=== PATIENT | female | born 1960 | race Caucasian/White ===

== ENCOUNTER 2019-09-08 15:03 | Inpatient (IN) ==
[2019-09-08 17:05] LABS: Bilirubin,Urine Negative (Negative); Blood,Urine Small (Negative); Clarity,Urine Clear (Clear); Color,Urine Yellow (Yellow); Glucose,Urine (UA) >=1000 mg/dL (Normal); Ketones,Urine Trace mg/dL (Negative); Leukocyte Esterase,Urine Negative (Negative); Nitrite,Urine Negative (Negative); Protein,Urine Negative (Neg-Trace); Urobilinogen,Urine Normal (Normal)
[2019-09-08 17:08] LABS: Bacteria,Urine None Seen per hpf (None-Few); Hyaline Casts,Urine None Seen per lpf (None-Few); Squamous Epithelial Cell,Urine Many per lpf (None-Few)
[2019-09-08] MEDS: 0.9 % Sodium Chloride 1,000 ML IVC SCH ×2 (17:10→19:08)
[2019-09-08 17:22] LABS: Basophils # 0.1 K/mcL (0.0-0.2); Basophils % 0.5 %; Eosinophils % 0.3 %; Hematocrit 47.9 % (35.3-44.9); Hemoglobin 15.3 g/dL (11.5-15.4); Immature Granulocytes % 0.5 % (0-4); Lymphocytes % 8.6 %; Mean Corpuscular HGB Conc 31.9 g/dL (31.6-35.5); Mean Corpuscular Volume 100.2 fL (83.0-100.0); Mean Platelet Volume 14.6 fL (9.4-12.4); Monocytes % 8.3 %; Neutrophils # 9.7 K/mcL (1.6-8.9); Platelet Count 192 K/mcL (140-400); Red Blood Count 4.78 M/mcL (3.82-4.97); Red Cell Distribution Width 13.4 % (11.5-14.5); Segmented Neutrophils % 81.8 %; White Blood Count 11.9 K/mcL (4.3-11.1)
[2019-09-08 17:28] LABS: VBG HCO3 24 mEq/L (21-27); VBG PCO2 48 mmHg (41-51); VBG PH 7.31 pH Units (7.32-7.42); VBG PO2 49 mmHg (25-50)
[2019-09-08 17:36] LABS: Estimated Average Glucose 352 mg/dl
[2019-09-08 18:03] LABS: Alanine Aminotransferase 45 Units/L (7-52); Albumin 4.1 g/dL (3.5-5.7); Albumin/Globulin Ratio 1.1 (1.1-2.2); Alkaline Phosphatase 112 Units/L (34-104); Aspartate Amino Transferase 34 Units/L (13-39); BUN/Creatinine Ratio 18 (6-26); Bilirubin,Total 0.8 mg/dL (0.3-1.0); Blood Urea Nitrogen 36 mg/dL (8-23); Calcium 11.1 mg/dL (8.6-10.3); Carbon Dioxide 20 mEq/L (23-29); Chloride 81 mEq/L (98-107); Globulin 3.9 g/dL (2.4-3.5); Magnesium 2.4 mg/dL (1.6-2.6); Osmolality,Calculated 302 (280-300); Potassium 3.8 mEq/L (3.5-5.1); Sodium 118 mEq/L (136-145); Troponin I < 0.03 ng/mL (< 0.04); eGFR For African Americans 31 (> 60); eGFR For Non-African Americans 25 (> 60)
[2019-09-08 18:05] LABS: Glucose 949 mg/dL (70-105)
[2019-09-08] MEDS ORDERED: *HR* Dextrose 50 % in Water (Syg) 50 ML SYRINGE IVP PRN ×2 (18:14→19:57)
[2019-09-08] MEDS ORDERED: Insulin Regular, Human 100 UNIT/ML IV ONE (18:14)
[2019-09-08] MEDS ORDERED: Insulin Human Regular 100 UNIT in 0.9 % Sodium Chloride 100 ML IVC SCH ×2 (18:15→20:00)
[2019-09-08] MEDS ORDERED: 0.9 % Sodium Chloride w KCl 20 MEQ/1,000 ML MLS IVC SCH (18:30)
[2019-09-08] MEDS ORDERED: D5% in 0.45% NACL w KCl 20 MEQ/1,000 ML MLS IVC PRN (19:57)
[2019-09-08] MEDS ORDERED: Insulin Regular, Human 100 UNIT/ML IV PRN (19:57)
[2019-09-08] MEDS ORDERED: D5% in 0.45% NACL 1,000 ML IVC PRN (19:57)
[2019-09-08 21:18] LABS: BUN/Creatinine Ratio 19 (6-26); Blood Urea Nitrogen 33 mg/dL (8-23); Calcium 9.9 mg/dL (8.6-10.3); Carbon Dioxide 21 mEq/L (23-29); Chloride 92 mEq/L (98-107); Glucose 665 mg/dL (70-105); Osmolality,Calculated 301 (280-300); Sodium 126 mEq/L (136-145); eGFR For African Americans 36 (> 60); eGFR For Non-African Americans 30 (> 60)
[2019-09-08] MEDS: 0.45 % Sodium Chloride w/KCl 20 MEQ/1,000 ML MLS IVC SCH ×2 (21:21→23:17)
[2019-09-08] MEDS ORDERED: Ondansetron 4 MG/2 ML VIAL IVP PRN (21:21)
[2019-09-08] MEDS: Insulin Human Regular 100 UNIT in 0.9 % Sodium Chloride 100 ML IVC SCH (21:22)
[2019-09-08 22:18] LABS: Troponin I < 0.03 ng/mL (< 0.04)
[2019-09-08 22:57] LABS: Calcium 9.8 mg/dL (8.6-10.3); Potassium 3.2 mEq/L (3.5-5.1)
[2019-09-09 00:40] LABS: Calcium 9.8 mg/dL (8.6-10.3); Potassium 3.6 mEq/L (3.5-5.1)
[2019-09-09] MEDS: 0.45 % Sodium Chloride w/KCl 20 MEQ/1,000 ML MLS IVC SCH ×4 (02:12→06:25)
[2019-09-09 02:53] LABS: Calcium 9.6 mg/dL (8.6-10.3); Potassium 3.2 mEq/L (3.5-5.1)
[2019-09-09 05:35] LABS: Calcium 9.8 mg/dL (8.6-10.3); Potassium 3.2 mEq/L (3.5-5.1)
[2019-09-09] MEDS ORDERED: *HR* Heparin 5,000 UNIT/ML VIAL SQ SCH (06:00)
[2019-09-09] MEDS ORDERED: Insulin DETEMIR 100 UNIT/ML X5UNITS SQ ONE ×3 (06:17→21:00)
[2019-09-09] MEDS: Insulin Human Regular 100 UNIT in 0.9 % Sodium Chloride 100 ML IVC SCH (06:19)
[2019-09-09 06:30] LABS: Basophils # 0.1 K/mcL (0.0-0.2); Basophils % 0.3 %; Eosinophils # 0.1 K/mcL (0.0-0.6); Eosinophils % 0.7 %; Hematocrit 42.5 % (35.3-44.9); Hemoglobin 14.8 g/dL (11.5-15.4); Immature Granulocytes % 0.7 % (0-4); Lymphocytes # 1.6 K/mcL (0.6-4.6); Lymphocytes % 9.7 %; Mean Corpuscular HGB Conc 34.8 g/dL (31.6-35.5); Mean Corpuscular Hemoglobin 32.5 pg (28.0-33.3); Mean Corpuscular Volume 93.4 fL (83.0-100.0); Monocytes % 5.9 %; Neutrophils # 13.8 K/mcL (1.6-8.9); Platelet Count 200 K/mcL (140-400); Red Blood Count 4.55 M/mcL (3.82-4.97); Red Cell Distribution Width 13.3 % (11.5-14.5); Segmented Neutrophils % 82.7 %; White Blood Count 16.7 K/mcL (4.3-11.1)
[2019-09-09 06:50] LABS: Calcium 9.8 mg/dL (8.6-10.3)
[2019-09-09] MEDS ORDERED: 0.9 % Sodium Chloride w KCl 20 MEQ/1,000 ML MLS IVC SCH ×2 (09:00→14:02)
[2019-09-09] MEDS ORDERED: Perflutren Lipid Microsphere 1.3 ML in 0.9 % Sodium Chloride 8.7 ML IVP ONE ×2 (09:48→14:02)
[2019-09-09] MEDS: Insulin LISPRO 300 UNITS/3 ML VIAL SQ SCH ×4 (10:41→16:59)
[2019-09-09] MEDS ORDERED: Dextrose Gel 15 GM/37.5 ML TUBE PO PRN ×4 (11:35→14:02)
[2019-09-09] MEDS ORDERED: D5% in Water 1,000 ML IVC PRN (11:35)
[2019-09-09] MEDS ORDERED: *HR* Dextrose 50 % in Water (Syg) 50 ML SYRINGE IVP PRN ×2 (11:35→14:02)
[2019-09-09] MEDS ORDERED: Ondansetron 4 MG/2 ML VIAL IVP PRN (14:02)
[2019-09-09] MEDS ORDERED: Insulin LISPRO 300 UNITS/3 ML VIAL SQ SCH ×3 (17:00→21:00)
[2019-09-09 17:14] LABS: Acinetobacter baumannii by PCR Not Detected (Not Detect); Candida albicans by PCR Not Detected (Not Detect); Candida glabrata by PCR Not Detected (Not Detect); Candida krusei by PCR Not Detected (Not Detect); Candida parapsilosis by PCR Not Detected (Not Detect); Candida tropicalis by PCR Not Detected (Not Detect); Enterobacter cloacae Cmplx PCR Not Detected (Not Detect); Enterobacteriaceae by PCR Not Detected (Not Detect); Enterococcus by PCR Not Detected (Not Detect); Escherichia coli by PCR Not Detected (Not Detect); Klebsiella oxytoca by PCR Not Detected (Not Detect); Klebsiella pneumoniae by PCR Not Detected (Not Detect); Proteus by PCR Not Detected (Not Detect); Pseudomonas aeruginosa by PCR Not Detected (Not Detect); Serratia marcescens by PCR Not Detected (Not Detect); Staphylococcus aureus by PCR DETECTED (Not Detect); Streptococcus agalactiae(B)PCR Not Detected (Not Detect); Streptococcus by PCR Not Detected (Not Detect); Streptococcus pneumoniae PCR Not Detected (Not Detect); Streptococcus pyogenes (A) PCR Not Detected (Not Detect); blaKPC Carbapenem-Resist Gene Not Detected (Not Detect); mecA Methicillin-Resist Gene Not Detected (Not Detect); vanA/B Vancomycin-Resist Genes Not Detected (Not Detect)
[2019-09-09] MEDS: *HR* Heparin 5,000 UNIT/ML VIAL SQ SCH (17:27)
[2019-09-09] MEDS ORDERED: Vancomycin 1,750 MG in 0.9 % Sodium Chloride 250 ML IVPB SCH (18:00)
[2019-09-09 18:05] LABS: Alanine Aminotransferase 32 Units/L (7-52); Albumin 3.4 g/dL (3.5-5.7); Alkaline Phosphatase 91 Units/L (34-104); Aspartate Amino Transferase 27 Units/L (13-39); BUN/Creatinine Ratio 19 (6-26); Bilirubin,Total 0.6 mg/dL (0.3-1.0); Blood Urea Nitrogen 22 mg/dL (8-23); Calcium 9.3 mg/dL (8.6-10.3); Carbon Dioxide 19 mEq/L (23-29); Chloride 101 mEq/L (98-107); Globulin 3.5 g/dL (2.4-3.5); Glucose 291 mg/dL (70-105); Magnesium 1.9 mg/dL (1.6-2.6); Osmolality,Calculated 278 (280-300); Phosphorous < 1.0 mg/dL (2.7-4.5); Potassium 3.4 mEq/L (3.5-5.1); Sodium 127 mEq/L (136-145); Total Protein 6.9 g/dL (6.4-8.9); eGFR For African Americans 59 (> 60); eGFR For Non-African Americans 48 (> 60)
[2019-09-09] MEDS ORDERED: Potassium Phosphate 44 MEQ in 0.9 % Sodium Chloride 250 ML IVPB ONE (18:09)
[2019-09-09 22:16] LABS: Alanine Aminotransferase 29 Units/L (7-52); Albumin 3.2 g/dL (3.5-5.7); Albumin/Globulin Ratio 0.9 (1.1-2.2); Alkaline Phosphatase 94 Units/L (34-104); Aspartate Amino Transferase 29 Units/L (13-39); BUN/Creatinine Ratio 20 (6-26); Bilirubin,Total 0.6 mg/dL (0.3-1.0); Blood Urea Nitrogen 21 mg/dL (8-23); Carbon Dioxide 18 mEq/L (23-29); Chloride 103 mEq/L (98-107); Globulin 3.4 g/dL (2.4-3.5); Glucose 188 mg/dL (70-105); Magnesium 1.8 mg/dL (1.6-2.6); Osmolality,Calculated 274 (280-300); Phosphorous 1.3 mg/dL (2.7-4.5); Potassium 3.8 mEq/L (3.5-5.1); Sodium 128 mEq/L (136-145); Total Protein 6.6 g/dL (6.4-8.9); eGFR For African Americans > 60 (> 60); eGFR For Non-African Americans 53 (> 60)
[2019-09-10 03:34] LABS: Basophils % 0.3 %; Eosinophils # 0.1 K/mcL (0.0-0.6); Eosinophils % 0.5 %; Hematocrit 39.6 % (35.3-44.9); Hemoglobin 13.6 g/dL (11.5-15.4); Immature Granulocytes % 0.4 % (0-4); Lymphocytes # 1.3 K/mcL (0.6-4.6); Lymphocytes % 8.8 %; Mean Corpuscular HGB Conc 34.3 g/dL (31.6-35.5); Mean Corpuscular Volume 93.2 fL (83.0-100.0); Mean Platelet Volume 14.5 fL (9.4-12.4); Monocytes # 1.5 K/mcL (0.0-1.3); Monocytes % 10.6 %; Neutrophils # 11.4 K/mcL (1.6-8.9); Platelet Count 142 K/mcL (140-400); Red Blood Count 4.25 M/mcL (3.82-4.97); Red Cell Distribution Width 13.4 % (11.5-14.5); Segmented Neutrophils % 79.4 %; White Blood Count 14.3 K/mcL (4.3-11.1)
[2019-09-10 04:10] LABS: Magnesium 1.9 mg/dL (1.6-2.6); Phosphorous 2.6 mg/dL (2.7-4.5)
[2019-09-10 04:24] LABS: Alanine Aminotransferase 26 Units/L (7-52); Albumin 2.9 g/dL (3.5-5.7); Albumin/Globulin Ratio 0.9 (1.1-2.2); Alkaline Phosphatase 79 Units/L (34-104); Aspartate Amino Transferase 25 Units/L (13-39); BUN/Creatinine Ratio 19 (6-26); Bilirubin,Total 0.6 mg/dL (0.3-1.0); Blood Urea Nitrogen 18 mg/dL (8-23); Calcium 8.5 mg/dL (8.6-10.3); Carbon Dioxide 17 mEq/L (23-29); Chloride 104 mEq/L (98-107); Globulin 3.2 g/dL (2.4-3.5); Glucose 193 mg/dL (70-105); Osmolality,Calculated 275 (280-300); Potassium 3.8 mEq/L (3.5-5.1); Sodium 129 mEq/L (136-145); Total Protein 6.1 g/dL (6.4-8.9); eGFR For African Americans > 60 (> 60); eGFR For Non-African Americans > 60 (> 60)
[2019-09-10] MEDS: *HR* Heparin 5,000 UNIT/ML VIAL SQ SCH ×2 (06:40→17:04)
[2019-09-10] MEDS ORDERED: Insulin LISPRO 300 UNITS/3 ML VIAL SQ SCH ×2 (07:30→21:00)
[2019-09-10] MEDS ORDERED: Insulin DETEMIR 100 UNIT/ML X5UNITS SQ SCH ×2 (09:00)
[2019-09-10] MEDS: Insulin LISPRO 300 UNITS/3 ML VIAL SQ SCH ×3 (09:05→17:05)
[2019-09-10] MEDS: Insulin DETEMIR 100 UNIT/ML X5UNITS SQ SCH ×2 (09:24→20:06)
[2019-09-10 11:15] LABS: Chol/HDL Ratio 3.3 (0-4.9)
[2019-09-11] MEDS: Acetaminophen 325 MG TABLET PO PRN ×4 (00:05→19:08)
[2019-09-11 05:09] LABS: Eosinophils % 1.6 %; Hemoglobin 12.4 g/dL (11.5-15.4); Immature Granulocytes % 0.3 % (0-4)
[2019-09-11 05:11] LABS: Basophils % 0.5 %; Eosinophils # 0.1 K/mcL (0.0-0.6); Hematocrit 36.6 % (35.3-44.9); Immature Platelets 27.4 % (1.1-6.1); Lymphocytes # 1.4 K/mcL (0.6-4.6); Lymphocytes % 15.9 %; Mean Corpuscular HGB Conc 33.9 g/dL (31.6-35.5); Mean Corpuscular Hemoglobin 32.6 pg (28.0-33.3); Mean Corpuscular Volume 96.3 fL (83.0-100.0); Monocytes # 0.9 K/mcL (0.0-1.3); Monocytes % 10.1 %; Neutrophils # 6.3 K/mcL (1.6-8.9); Platelet Count 106 K/mcL (140-400); Red Cell Distribution Width 13.6 % (11.5-14.5); Segmented Neutrophils % 71.6 %; White Blood Count 8.8 K/mcL (4.3-11.1)
[2019-09-11 05:30] LABS: BUN/Creatinine Ratio 15 (6-26); Blood Urea Nitrogen 13 mg/dL (8-23); Calcium 8.4 mg/dL (8.6-10.3); Carbon Dioxide 22 mEq/L (23-29); Chloride 108 mEq/L (98-107); Glucose 110 mg/dL (70-105); Magnesium 1.9 mg/dL (1.6-2.6); Osmolality,Calculated 279 (280-300); Phosphorous 1.9 mg/dL (2.7-4.5); Potassium 3.4 mEq/L (3.5-5.1); Sodium 134 mEq/L (136-145); eGFR For African Americans > 60 (> 60); eGFR For Non-African Americans > 60 (> 60)
[2019-09-11] MEDS: *HR* Heparin 5,000 UNIT/ML VIAL SQ SCH ×2 (06:00→17:06)
[2019-09-11] MEDS ORDERED: Potassium Phosphate 44 MEQ in 0.9 % Sodium Chloride 250 ML IVPB ONE (07:51)
[2019-09-11] MEDS ORDERED: D5% in Water 1,000 ML IVC PRN (08:08)
[2019-09-11] MEDS: Insulin LISPRO 300 UNITS/3 ML VIAL SQ SCH ×3 (08:22→17:06)
[2019-09-11] MEDS: Insulin DETEMIR 100 UNIT/ML X5UNITS SQ SCH ×2 (08:23→21:47)
[2019-09-12] MEDS: *HR* Heparin 5,000 UNIT/ML VIAL SQ SCH ×2 (05:01→17:51)
[2019-09-12 06:09] LABS: Basophils # 0.1 K/mcL (0.0-0.2); Basophils % 0.7 %; Eosinophils # 0.2 K/mcL (0.0-0.6); Eosinophils % 2.7 %; Hematocrit 36.8 % (35.3-44.9); Hemoglobin 12.5 g/dL (11.5-15.4); Immature Granulocytes % 0.3 % (0-4); Lymphocytes # 1.6 K/mcL (0.6-4.6); Lymphocytes % 18.6 %; Mean Corpuscular Hemoglobin 32.3 pg (28.0-33.3); Mean Corpuscular Volume 95.1 fL (83.0-100.0); Mean Platelet Volume 14.8 fL (9.4-12.4); Monocytes # 0.8 K/mcL (0.0-1.3); Monocytes % 9.1 %; Platelet Count 127 K/mcL (140-400); Red Blood Count 3.87 M/mcL (3.82-4.97); Red Cell Distribution Width 13.9 % (11.5-14.5); Segmented Neutrophils % 68.6 %; White Blood Count 8.8 K/mcL (4.3-11.1)
[2019-09-12 06:30] LABS: BUN/Creatinine Ratio 13 (6-26); Blood Urea Nitrogen 11 mg/dL (8-23); Calcium 8.4 mg/dL (8.6-10.3); Carbon Dioxide 23 mEq/L (23-29); Chloride 107 mEq/L (98-107); Glucose 95 mg/dL (70-105); Magnesium 1.8 mg/dL (1.6-2.6); Osmolality,Calculated 285 (280-300); Phosphorous 2.3 mg/dL (2.7-4.5); Potassium 3.4 mEq/L (3.5-5.1); Sodium 138 mEq/L (136-145); eGFR For African Americans > 60 (> 60); eGFR For Non-African Americans > 60 (> 60)
[2019-09-12] MEDS: Insulin LISPRO 300 UNITS/3 ML VIAL SQ SCH ×3 (07:24→16:38)
[2019-09-12] MEDS: Insulin DETEMIR 100 UNIT/ML X5UNITS SQ SCH ×2 (08:14→20:49)
[2019-09-12] MEDS: Acetaminophen 325 MG TABLET PO PRN ×3 (08:20→17:54)
[2019-09-12] MEDS ORDERED: Potassium Phosphate 44 MEQ in 0.9 % Sodium Chloride 250 ML IVPB ONE (08:49)
[2019-09-13 05:47] LABS: BUN/Creatinine Ratio 13 (6-26); Blood Urea Nitrogen 11 mg/dL (8-23); Calcium 8.3 mg/dL (8.6-10.3); Carbon Dioxide 20 mEq/L (23-29); Chloride 106 mEq/L (98-107); Glucose 167 mg/dL (70-105); Magnesium 1.7 mg/dL (1.6-2.6); Osmolality,Calculated 279 (280-300); Potassium 3.6 mEq/L (3.5-5.1); Sodium 133 mEq/L (136-145); eGFR For African Americans > 60 (> 60); eGFR For Non-African Americans > 60 (> 60)
[2019-09-13] MEDS: *HR* Heparin 5,000 UNIT/ML VIAL SQ SCH ×2 (05:47→16:52)
[2019-09-13] MEDS: Insulin DETEMIR 100 UNIT/ML X5UNITS SQ SCH (08:17)
[2019-09-13] MEDS: Insulin LISPRO 300 UNITS/3 ML VIAL SQ SCH ×3 (08:17→16:58)
[2019-09-13] MEDS: Acetaminophen 325 MG TABLET PO PRN ×2 (10:02→18:18)
[2019-09-13 10:36] LABS: Adenovirus F 40/41 PCR Not detected (Not detect); Astrovirus PCR Not detected (Not detect); C.difficile Toxin A/B Gene PCR Not detected (Not detect); Campylobacter by PCR Not detected (Not detect); Cryptosporidium by PCR Not detected (Not detect); Cyclospora cayetanensis PCR Not detected (Not detect); E. coli O157 by PCR Not detected (Not detect); Entamoeba histolytica PCR Not detected (Not detect); Enteroaggregative E.coli(EAEC) Not detected (Not detect); Enteropathogenic E.coli(EPEC) Not detected (Not detect); Enterotoxigenic E.coli (ETEC) Not detected (Not detect); Giardia lamblia PCR Not detected (Not detect); Norovirus GI/GII PCR Not detected (Not detect); Plesiomonas shigelloides PCR Not detected (Not detect); Rotavirus A PCR Not detected (Not detect); Salmonella PCR Not detected (Not detect); Sapovirus PCR Not detected (Not detect); Shig/EnteroinvasiveE coli EIEC Not detected (Not detect); Shigalike tox-prod E coli STEC Not detected (Not detect); Vibrio PCR Not detected (Not detect); Vibrio cholerae PCR Not detected (Not detect); Yersinia enterocolitica PCR Not detected (Not detect)
[2019-09-14] MEDS: Insulin DETEMIR 100 UNIT/ML X5UNITS SQ SCH ×3 (01:13→20:48)
[2019-09-14] MEDS: Acetaminophen 325 MG TABLET PO PRN ×3 (01:18→20:48)
[2019-09-14 06:14] LABS: BUN/Creatinine Ratio 10 (6-26); Blood Urea Nitrogen 9 mg/dL (8-23); Calcium 8.3 mg/dL (8.6-10.3); Carbon Dioxide 18 mEq/L (23-29); Chloride 107 mEq/L (98-107); Glucose 178 mg/dL (70-105); Magnesium 1.6 mg/dL (1.6-2.6); Osmolality,Calculated 281 (280-300); Phosphorous 2.3 mg/dL (2.7-4.5); Potassium 3.7 mEq/L (3.5-5.1); Sodium 134 mEq/L (136-145); eGFR For African Americans > 60 (> 60); eGFR For Non-African Americans > 60 (> 60)
[2019-09-14] MEDS: *HR* Heparin 5,000 UNIT/ML VIAL SQ SCH ×2 (06:22→17:06)
[2019-09-14] MEDS: Insulin LISPRO 300 UNITS/3 ML VIAL SQ SCH ×3 (08:59→17:06)
[2019-09-14] MEDS ORDERED: traMADol 50 MG TABLET PO ONE (22:05)
[2019-09-15] MEDS: *HR* Heparin 5,000 UNIT/ML VIAL SQ SCH (06:43)
[2019-09-15] MEDS ORDERED: Lidocaine Viscous Oral Soln 15 ML SOLUTION MM PRN (07:39)
[2019-09-15] MEDS ORDERED: 0.9 % Sodium Chloride 500 ML IVC ONE (07:40)
[2019-09-15] MEDS: *HR* FentaNYL (PF) 100 MCG/2 ML VIAL IVP PRN ×4 (08:20→08:50)
[2019-09-15] MEDS: *HR* Midazolam HCl 5 MG/5 ML VIAL IVP PRN ×6 (08:20→08:50)
[2019-09-15 09:59] LABS: BUN/Creatinine Ratio 12 (6-26); Blood Urea Nitrogen 10 mg/dL (8-23); Calcium 8.3 mg/dL (8.6-10.3); Carbon Dioxide 24 mEq/L (23-29); Chloride 107 mEq/L (98-107); Glucose 146 mg/dL (70-105); Osmolality,Calculated 288 (280-300); Potassium 3.7 mEq/L (3.5-5.1); Sodium 138 mEq/L (136-145); eGFR For African Americans > 60 (> 60); eGFR For Non-African Americans > 60 (> 60)
[2019-09-15] MEDS: Insulin LISPRO 300 UNITS/3 ML VIAL SQ SCH ×3 (10:29→17:12)
[2019-09-15] MEDS ORDERED: Lidocaine -MPF 1% 5 ML AMPUL INFILT ONE (11:04)
[2019-09-15] MEDS ORDERED: Isovue-370 500 ML BOTTLE IVP ONE (11:31)
[2019-09-15] MEDS: Insulin DETEMIR 100 UNIT/ML X5UNITS SQ SCH ×2 (11:58→20:59)
[2019-09-15] MEDS: Acetaminophen 325 MG TABLET PO PRN (19:42)
[2019-09-16] MEDS: *HR* Heparin 5,000 UNIT/ML VIAL SQ SCH ×2 (06:49→16:06)
[2019-09-16] MEDS: Insulin LISPRO 300 UNITS/3 ML VIAL SQ SCH ×3 (07:13→16:02)
[2019-09-16] MEDS ORDERED: Aspirin Enteric Coated 81 MG Tablet PO SCH (09:00)
[2019-09-16] MEDS: Insulin DETEMIR 100 UNIT/ML X5UNITS SQ SCH ×2 (09:31→21:06)
[2019-09-16] MEDS: Acetaminophen 325 MG TABLET PO PRN ×2 (14:30→19:56)
[2019-09-16 20:52] VITALS: BP 138/82
[2019-09-16] MEDS ORDERED: Aminoglycoside Consult 1 EACH MC ONE (22:57)
== END 2019-09-16 22:58 | disposition home health service (06) | DRG 871 ==
LOC: EMEROOARM 15:03 → ICNU 15:03 → 2ANU 09-10 12:44 → SUATTDRO 09-11 09:59
PROVIDERS: ADMIT Internal Medicine; ATTEND Internal Medicine

== ENCOUNTER 2021-01-05 10:18 | Observation (INO) ==
[2021-01-05 11:06] LABS: Red Cell Distribution Width 21.8 % (11.5-14.5)
[2021-01-05 11:08] LABS: Basophils # 0.1 K/mcL (0.0-0.2); Basophils % 0.7 %; Eosinophils # 0.4 K/mcL (0.0-0.6); Eosinophils % 4.6 %; Hematocrit 33.8 % (35.3-44.9); Immature Granulocytes % 1.4 % (0-4); Immature Platelets 22.3 % (1.1-6.1); Lymphocytes # 0.9 K/mcL (0.6-4.6); Mean Corpuscular HGB Conc 32.5 g/dL (31.6-35.5); Mean Corpuscular Hemoglobin 31.3 pg (28.0-33.3); Monocytes # 0.7 K/mcL (0.0-1.3); Monocytes % 8.4 %; Neutrophils # 6.1 K/mcL (1.6-8.9); Platelet Count 177 K/mcL (140-400); Red Blood Count 3.52 M/mcL (3.82-4.97); Segmented Neutrophils % 73.9 %; White Blood Count 8.3 K/mcL (4.3-11.1)
[2021-01-05 11:10] LABS: INR 1.4; Prothrombin Time 15.7 Seconds (9.4-12.1)
[2021-01-05 11:22] LABS: Alanine Aminotransferase 91 Units/L (7-52); Albumin 3.2 g/dL (3.5-5.7); Albumin/Globulin Ratio 0.9 (1.1-2.2); Alkaline Phosphatase 484 Units/L (34-104); Aspartate Amino Transferase 105 Units/L (13-39); BUN/Creatinine Ratio 8 (6-26); Bilirubin,Direct 8.5 mg/dL (0.0-0.2); Bilirubin,Indirect 5.9 mg/dL (0.0-1.0); Bilirubin,Total 14.4 mg/dL (0.3-1.0); Blood Urea Nitrogen 9 mg/dL (8-23); Calcium 8.3 mg/dL (8.6-10.3); Carbon Dioxide 20 mEq/L (23-29); Chloride 104 mEq/L (98-107); Globulin 3.4 g/dL (2.4-3.5); Glucose 223 mg/dL (70-105); Lipase 17 Units/L (11-82); Osmolality,Calculated 282 (280-300); Potassium 2.9 mEq/L (3.5-5.1); Sodium 133 mEq/L (136-145); Total Protein 6.6 g/dL (6.4-8.9); eGFR For African Americans > 60 (> 60); eGFR For Non-African Americans 51 (> 60)
[2021-01-05 11:43] LABS: Stomatocytes 1+ (Not Present); Target Cells 1+ (Not Present)
[2021-01-05 11:44] LABS: Platelet Estimate Normal (Normal)
[2021-01-05] MEDS ORDERED: Naloxone 0.4 MG/ML INJ IVP PRN (15:50)
[2021-01-05] MEDS ORDERED: Ondansetron 4 MG/2 ML VIAL IVP PRN (15:50)
[2021-01-05] MEDS ORDERED: Gadolinium Contrast Agent (WT Based) IV PRN (15:54)
[2021-01-05] MEDS ORDERED: Dextrose Gel 15 GM/37.5 ML TUBE PO PRN ×2 (15:56)
[2021-01-05] MEDS ORDERED: D5% in Water 1,000 ML IVC PRN (15:56)
[2021-01-05] MEDS ORDERED: *HR* Dextrose 50 % in Water (Vial) 50 ML VIAL IVP PRN (15:56)
[2021-01-05 17:28] LABS: Acetaminophen < 10 mcg/mL (10-20); Salicylate < 2.5 mg/dL (15.0-30.0)
[2021-01-05] MEDS: Insulin LISPRO 300 UNITS/3 ML VIAL SUBQ SCH (18:13)
[2021-01-05] MEDS: carvediloL 6.25 MG TABLET PO SCH (20:19)
[2021-01-05] MEDS: Insulin DETEMIR 100 UNIT/ML X5UNITS SUBQ SCH (20:19)
[2021-01-06 04:56] LABS: Mean Corpuscular Hemoglobin 31.6 pg (28.0-33.3)
[2021-01-06 04:58] LABS: Basophils # 0.1 K/mcL (0.0-0.2); Eosinophils # 0.4 K/mcL (0.0-0.6); Eosinophils % 5.8 %; Hematocrit 31.8 % (35.3-44.9); Hemoglobin 10.3 g/dL (11.5-15.4); Lymphocytes # 1.1 K/mcL (0.6-4.6); Lymphocytes % 16.1 %; Mean Corpuscular HGB Conc 32.4 g/dL (31.6-35.5); Mean Corpuscular Volume 97.5 fL (83.0-100.0); Monocytes # 0.7 K/mcL (0.0-1.3); Monocytes % 9.7 %; Platelet Count 165 K/mcL (140-400); Red Blood Count 3.26 M/mcL (3.82-4.97); Red Cell Distribution Width 21.7 % (11.5-14.5); Segmented Neutrophils % 65.4 %; White Blood Count 7.1 K/mcL (4.3-11.1)
[2021-01-06 04:59] LABS: Neutrophils # 4.6 K/mcL (1.6-8.9)
[2021-01-06 05:00] LABS: INR 1.4; Prothrombin Time 16.3 Seconds (9.4-12.1)
[2021-01-06 05:02] LABS: Activated Partial Thrombo Time 28.5 Seconds (26.0-36.0)
[2021-01-06 05:17] LABS: Alanine Aminotransferase 79 Units/L (7-52); Albumin 2.9 g/dL (3.5-5.7); Albumin/Globulin Ratio 0.9 (1.1-2.2); Alkaline Phosphatase 426 Units/L (34-104); Aspartate Amino Transferase 88 Units/L (13-39); BUN/Creatinine Ratio 10 (6-26); Bilirubin,Total 14.5 mg/dL (0.3-1.0); Blood Urea Nitrogen 10 mg/dL (8-23); Calcium 8.3 mg/dL (8.6-10.3); Carbon Dioxide 20 mEq/L (23-29); Chloride 106 mEq/L (98-107); Gamma Glutamyl Transpeptidase 754 Units/L (7-64); Globulin 3.1 g/dL (2.4-3.5); Glucose 118 mg/dL (70-105); Magnesium 0.7 mg/dL (1.6-2.6); Osmolality,Calculated 280 (280-300); Phosphorous 2.4 mg/dL (2.7-4.5); Potassium 3.3 mEq/L (3.5-5.1); Sodium 135 mEq/L (136-145); eGFR For African Americans > 60 (> 60); eGFR For Non-African Americans 55 (> 60)
[2021-01-06 05:55] LABS: Hepatitis B Surface Antigen Nonreactive (Nonreactive)
[2021-01-06 06:24] LABS: Hepatitis B Core IgM Nonreactive (Nonreactive)
[2021-01-06 06:25] LABS: Hepatitis A Antibody IgM Nonreactive (Nonreactive); Hepatitis C Virus Antibody Nonreactive (Nonreactive)
[2021-01-06] MEDS: Insulin LISPRO 300 UNITS/3 ML VIAL SUBQ SCH ×3 (09:44→17:39)
[2021-01-06] MEDS: FLUoxetine 20 MG CAPSULE PO SCH (09:55)
[2021-01-06] MEDS: carvediloL 6.25 MG TABLET PO SCH ×2 (09:55→20:42)
[2021-01-06] MEDS: Insulin DETEMIR 100 UNIT/ML X5UNITS SUBQ SCH ×2 (09:55→20:42)
[2021-01-06] MEDS ORDERED: Potassium Phosphate 44 MEQ in 0.9 % Sodium Chloride 250 ML IVPB ONE (11:10)
[2021-01-06] MEDS ORDERED: *HR* Propofol 200 MG/20 ML VIAL IVP ONE (13:22)
[2021-01-06] MEDS ORDERED: Ondansetron 4 MG/2 ML VIAL ONE (13:23)
[2021-01-06] MEDS ORDERED: Lidocaine -MPF 2% 2 ML VIAL ONE (13:23)
[2021-01-06] MEDS ORDERED: *HR* Succinylcholine 200 MG/10 ML VIAL IVP ONE (13:25)
[2021-01-06] MEDS ORDERED: *HR* FentaNYL (PF) 100 MCG/2 ML VIAL ONE ×3 (13:25→16:02)
[2021-01-06] MEDS ORDERED: Lidocaine -MPF 4% 5 ML AMPUL ONE (13:26)
[2021-01-06] MEDS ORDERED: *HR* Midazolam HCl 2 MG/2 ML VIAL ONE (13:39)
[2021-01-06] MEDS ORDERED: Magnesium Sulfate 1 GM/102 ML PIGGYBACK IVPB ONE (13:40)
[2021-01-06] MEDS ORDERED: *HR* Metoprolol 5 MG/5 ML VIAL IVP ONE (14:12)
[2021-01-06] MEDS ORDERED: *HR* OxyCODONE Immed Rel 5 MG TABLET PO ONE (16:40)
[2021-01-07 02:29] LABS: Hemoglobin 9.8 g/dL (11.5-15.4); Mean Corpuscular Volume 97.7 fL (83.0-100.0)
[2021-01-07 02:31] LABS: Basophils % 0.4 %; Hematocrit 29.7 % (35.3-44.9); Immature Granulocytes % 1.7 % (0-4); Immature Platelets 21.1 % (1.1-6.1); Lymphocytes # 0.9 K/mcL (0.6-4.6); Lymphocytes % 10.4 %; Mean Corpuscular Hemoglobin 32.2 pg (28.0-33.3); Mean Platelet Volume 14.5 fL (9.4-12.4); Monocytes # 0.5 K/mcL (0.0-1.3); Monocytes % 6.3 %; Neutrophils # 6.7 K/mcL (1.6-8.9); Platelet Count 180 K/mcL (140-400); Red Blood Count 3.04 M/mcL (3.82-4.97); Red Cell Distribution Width 21.7 % (11.5-14.5); Segmented Neutrophils % 81.2 %; White Blood Count 8.3 K/mcL (4.3-11.1)
[2021-01-07 02:46] LABS: Alanine Aminotransferase 67 Units/L (7-52); Albumin 2.9 g/dL (3.5-5.7); Albumin/Globulin Ratio 0.9 (1.1-2.2); Alkaline Phosphatase 414 Units/L (34-104); Aspartate Amino Transferase 60 Units/L (13-39); BUN/Creatinine Ratio 16 (6-26); Bilirubin,Total 9.8 mg/dL (0.3-1.0); Blood Urea Nitrogen 15 mg/dL (8-23); Calcium 7.9 mg/dL (8.6-10.3); Carbon Dioxide 19 mEq/L (23-29); Chloride 103 mEq/L (98-107); Globulin 3.3 g/dL (2.4-3.5); Glucose 160 mg/dL (70-105); Magnesium 1.1 mg/dL (1.6-2.6); Osmolality,Calculated 280 (280-300); Potassium 4.1 mEq/L (3.5-5.1); Sodium 133 mEq/L (136-145); Total Protein 6.2 g/dL (6.4-8.9); eGFR For African Americans > 60 (> 60); eGFR For Non-African Americans > 60 (> 60)
[2021-01-07] MEDS ORDERED: Magnesium Sulfate 1 GM/102 ML PIGGYBACK IVPB ONE (07:59)
[2021-01-07] MEDS: Insulin LISPRO 300 UNITS/3 ML VIAL SUBQ SCH ×2 (09:44→12:26)
[2021-01-07] MEDS: FLUoxetine 20 MG CAPSULE PO SCH (09:46)
[2021-01-07] MEDS: carvediloL 6.25 MG TABLET PO SCH (09:46)
[2021-01-07] MEDS: Insulin DETEMIR 100 UNIT/ML X5UNITS SUBQ SCH (09:52)
[2021-01-07 11:20] VITALS: BP 127/78
== END 2021-01-07 14:47 | disposition home or self-care (01) ==
LOC: 3ANU 10:18 → EMEROOARM 10:18 → SUATTDRO 16:00 → 3ANU 16:40
PROVIDERS: ADMIT Internal Medicine; ATTEND Internal Medicine
PROC: ENDOEUS (2021-01-06 11:00)

== ENCOUNTER 2021-01-24 16:44 | Inpatient (IN) ==
[2021-01-24] MEDS ORDERED: Ondansetron 4 MG/2 ML VIAL IVP ONE (17:03)
[2021-01-24] MEDS ORDERED: 0.9 % Sodium Chloride 1,000 ML IVC ONE ×2 (17:03→19:17)
[2021-01-24] MEDS ORDERED: *HR* FentaNYL (PF) 100 MCG/2 ML VIAL IVP ONE (17:04)
[2021-01-24] MEDS ORDERED: Isovue-370 500 ML BOTTLE IVP ONE (17:05)
[2021-01-24 17:31] LABS: Basophils # 0.1 K/mcL (0.0-0.2); Basophils % 0.4 %; Eosinophils # 0.2 K/mcL (0.0-0.6); Hematocrit 35.7 % (35.3-44.9); Hemoglobin 11.5 g/dL (11.5-15.4); Immature Granulocytes % 0.7 % (0-4); Lymphocytes # 1.4 K/mcL (0.6-4.6); Lymphocytes % 9.6 %; Mean Corpuscular HGB Conc 32.2 g/dL (31.6-35.5); Mean Corpuscular Hemoglobin 32.9 pg (28.0-33.3); Mean Platelet Volume 12.8 fL (9.4-12.4); Monocytes # 1.2 K/mcL (0.0-1.3); Monocytes % 7.7 %; Neutrophils # 12.1 K/mcL (1.6-8.9); Platelet Count 249 K/mcL (140-400); Red Cell Distribution Width 15.1 % (11.5-14.5); Segmented Neutrophils % 80.6 %
[2021-01-24 17:40] LABS: Bacteria,Urine Few per hpf (None-Few); Bilirubin,Urine Negative (Negative); Blood,Urine Small (Negative); Clarity,Urine Ex.Turbid (Clear); Color,Urine Yellow (Yellow); Glucose,Urine (UA) Normal (Normal); Ketones,Urine Negative (Negative); Leukocyte Esterase,Urine Large (Negative); Mucus,Urine Few per lpf (None-Few); Nitrite,Urine Negative (Negative); Protein,Urine 100 mg/dL (Neg-Trace); RBC,Urine 50-100 per hpf (0-3); Renal Epithelial Cells,Urine Few per hpf (None-Few); Specific Gravity,Urine 1.024 (1.010-1.025); Squamous Epithelial Cell,Urine Many per hpf (None-Few); WBC,Urine TNTC per hpf (0-3)
[2021-01-24 17:52] LABS: Alanine Aminotransferase 11 Units/L (7-52); Albumin 3.5 g/dL (3.5-5.7); Albumin/Globulin Ratio 0.9 (1.1-2.2); Alkaline Phosphatase 127 Units/L (34-104); Aspartate Amino Transferase 13 Units/L (13-39); BUN/Creatinine Ratio 20 (6-26); Bilirubin,Direct 0.9 mg/dL (0.0-0.2); Bilirubin,Indirect 1.3 mg/dL (0.0-1.0); Bilirubin,Total 2.2 mg/dL (0.3-1.0); Blood Urea Nitrogen 31 mg/dL (8-23); Carbon Dioxide 14 mEq/L (23-29); Chloride 106 mEq/L (98-107); Glucose 184 mg/dL (70-105); Lipase 70 Units/L (11-82); Osmolality,Calculated 289 (280-300); Potassium 3.1 mEq/L (3.5-5.1); Sodium 134 mEq/L (136-145); Total Protein 7.5 g/dL (6.4-8.9); Troponin I < 0.03 ng/mL (< 0.04); eGFR For African Americans 41 (> 60); eGFR For Non-African Americans 34 (> 60)
[2021-01-24] MEDS ORDERED: Piperacillin/Tazobactam 3.375 GM in 0.9 % Sodium Chloride Mini Bag 100 ML IVPB ONE (19:35)
[2021-01-24] MEDS ORDERED: Potassium Chloride Elixir 20 MEQ/15 ML UDC PO ONE (19:45)
[2021-01-24] MEDS ORDERED: Ondansetron 4 MG/2 ML VIAL IVP PRN (21:35)
[2021-01-24] MEDS ORDERED: Naloxone 0.4 MG/ML INJ IVP PRN (21:35)
[2021-01-24] MEDS ORDERED: D5% in Water 1,000 ML IVC PRN (21:38)
[2021-01-24] MEDS ORDERED: *HR* Dextrose 50 % in Water (Vial) 50 ML VIAL IVP PRN (21:38)
[2021-01-24] MEDS ORDERED: Dextrose Gel 15 GM/37.5 ML TUBE PO PRN ×2 (21:38)
[2021-01-24] MEDS: Norepinephrine 4 MG/254 ML IV.SOLN IVC SCH (22:53)
[2021-01-25] MEDS ORDERED: Ringers Solution, Lactated 1,000 ML IVC ONE (00:04)
[2021-01-25] MEDS: Insulin LISPRO 300 UNITS/3 ML VIAL SUBQ SCH ×5 (00:19→23:41)
[2021-01-25] MEDS: *HR* OxyCODONE Immed Rel 5 MG TABLET PO PRN ×2 (00:37→07:54)
[2021-01-25] MEDS: Morphine Sulfate 2 MG/ML SYRINGE IVP PRN ×3 (03:11→09:08)
[2021-01-25] MEDS: Piperacillin/Tazobactam 3.375 GM in 0.9 % Sodium Chloride Mini Bag 100 ML IVPB SCH ×3 (04:25→19:36)
[2021-01-25 09:23] LABS: Basophils # 0.1 K/mcL (0.0-0.2); Basophils % 0.5 %; Eosinophils # 0.3 K/mcL (0.0-0.6); Eosinophils % 1.9 %; Hematocrit 32.6 % (35.3-44.9); Immature Granulocytes % 0.6 % (0-4); Immature Platelets 13.9 % (1.1-6.1); Lymphocytes % 7.7 %; Mean Corpuscular HGB Conc 30.7 g/dL (31.6-35.5); Mean Corpuscular Hemoglobin 32.2 pg (28.0-33.3); Mean Corpuscular Volume 104.8 fL (83.0-100.0); Mean Platelet Volume 13.5 fL (9.4-12.4); Monocytes # 1.3 K/mcL (0.0-1.3); Monocytes % 9.7 %; Neutrophils # 10.3 K/mcL (1.6-8.9); Platelet Count 180 K/mcL (140-400); Red Blood Count 3.11 M/mcL (3.82-4.97); Red Cell Distribution Width 15.2 % (11.5-14.5); Segmented Neutrophils % 79.6 %
[2021-01-25 09:25] LABS: White Blood Count 12.9 K/mcL (4.3-11.1)
[2021-01-25 09:29] LABS: INR 1.2; Prothrombin Time 14.3 Seconds (9.4-12.1)
[2021-01-25] MEDS: *HR* HYDROmorphone (PF) 1 MG/ML SYRINGE IVP PRN ×3 (10:33→20:52)
[2021-01-25 11:11] LABS: Albumin/Globulin Ratio 0.9 (1.1-2.2); Bilirubin,Direct 0.9 mg/dL (0.0-0.2); Bilirubin,Indirect 0.8 mg/dL (0.0-1.0); Bilirubin,Total 1.7 mg/dL (0.3-1.0); Calcium 8.2 mg/dL (8.6-10.3); Globulin 3.4 g/dL (2.4-3.5); Magnesium 1.3 mg/dL (1.6-2.6); Potassium 3.9 mEq/L (3.5-5.1); Total Protein 6.4 g/dL (6.4-8.9)
[2021-01-25] MEDS ORDERED: Ringers Solution, Lactated 500 ML IVC ONE ×3 (12:06→16:15)
[2021-01-25] MEDS ORDERED: Ringers Solution, Lactated 500 ML ONE (12:09)
[2021-01-25] MEDS: Albumin Human 5% 12.5 GM/250 ML IV.SOLN IVC SCH ×2 (13:54→14:27)
[2021-01-25] MEDS: Norepinephrine 4 MG/254 ML IV.SOLN IVC SCH (20:28)
[2021-01-26] MEDS: *HR* HYDROmorphone (PF) 1 MG/ML SYRINGE IVP PRN ×2 (03:42→10:26)
[2021-01-26] MEDS: Piperacillin/Tazobactam 3.375 GM in 0.9 % Sodium Chloride Mini Bag 100 ML IVPB SCH ×3 (03:47→20:53)
[2021-01-26] MEDS: Insulin LISPRO 300 UNITS/3 ML VIAL SUBQ SCH ×3 (06:36→15:41)
[2021-01-26 08:05] LABS: Mean Platelet Volume 13.2 fL (9.4-12.4); Red Blood Count 2.84 M/mcL (3.82-4.97)
[2021-01-26 08:06] LABS: Basophils # 0.1 K/mcL (0.0-0.2); Basophils % 0.6 %; Eosinophils # 0.3 K/mcL (0.0-0.6); Eosinophils % 2.5 %; Hematocrit 30.3 % (35.3-44.9); Hemoglobin 9.3 g/dL (11.5-15.4); Immature Granulocytes % 0.6 % (0-4); Immature Platelets 12.6 % (1.1-6.1); Lymphocytes # 1.3 K/mcL (0.6-4.6); Lymphocytes % 10.7 %; Mean Corpuscular HGB Conc 30.7 g/dL (31.6-35.5); Mean Corpuscular Hemoglobin 32.7 pg (28.0-33.3); Mean Corpuscular Volume 106.7 fL (83.0-100.0); Monocytes # 1.1 K/mcL (0.0-1.3); Monocytes % 9.1 %; Platelet Count 181 K/mcL (140-400); Red Cell Distribution Width 15.2 % (11.5-14.5); Segmented Neutrophils % 76.5 %; White Blood Count 11.7 K/mcL (4.3-11.1)
[2021-01-26 08:11] LABS: INR 1.3; Prothrombin Time 14.7 Seconds (9.4-12.1)
[2021-01-26 08:26] LABS: Albumin 3.2 g/dL (3.5-5.7); Albumin/Globulin Ratio 1.1 (1.1-2.2); Bilirubin,Total 1.5 mg/dL (0.3-1.0); Calcium 8.6 mg/dL (8.6-10.3); Magnesium 1.2 mg/dL (1.6-2.6); Phosphorous 3.9 mg/dL (2.7-4.5); Potassium 3.9 mEq/L (3.5-5.1); Total Protein 6.2 g/dL (6.4-8.9)
[2021-01-26] MEDS ORDERED: Sodium Bicarbonate 150 MEQ in D5% in Water 1,000 ML IVC SCH (09:00)
[2021-01-26] MEDS ORDERED: *HR* HYDROcodone/Acet 5/325 mg TABLET PO PRN (12:55)
[2021-01-26] MEDS ORDERED: *HR* HYDROmorphone 2 MG TABLET PO PRN (14:58)
[2021-01-26] MEDS ORDERED: Mag Hydrox/Al Hydrox/Simeth 30 ML UDC PO PRN ×2 (15:21→17:57)
[2021-01-26] MEDS ORDERED: Insulin LISPRO 300 UNITS/3 ML VIAL SUBQ SCH ×5 (16:30→21:00)
[2021-01-26 17:23] LABS: Calcium 8.5 mg/dL (8.6-10.3); Potassium 3.4 mEq/L (3.5-5.1)
[2021-01-26] MEDS ORDERED: *HR* Heparin 5,000 UNIT/ML VIAL SQ SCH (17:45)
[2021-01-26] MEDS ORDERED: Naloxone 0.4 MG/ML INJ IVP PRN (17:57)
[2021-01-26] MEDS ORDERED: Norepinephrine 4 MG/254 ML IV.SOLN IVC SCH (17:57)
[2021-01-26] MEDS ORDERED: Ondansetron 4 MG/2 ML VIAL IVP PRN (17:57)
[2021-01-26] MEDS ORDERED: Dextrose Gel 15 GM/37.5 ML TUBE PO PRN ×2 (17:57)
[2021-01-26] MEDS ORDERED: D5% in Water 1,000 ML IVC PRN (17:57)
[2021-01-26] MEDS ORDERED: *HR* Dextrose 50 % in Water (Vial) 50 ML VIAL IVP PRN (17:57)
[2021-01-26] MEDS ORDERED: *HR* OxyCODONE Immed Rel 5 MG TABLET PO PRN (17:57)
[2021-01-26] MEDS: *HR* Heparin 5,000 UNIT/ML VIAL SQ SCH (20:53)
[2021-01-26] MEDS: *HR* HYDROmorphone 2 MG TABLET PO PRN (21:09)
[2021-01-27] MEDS: *HR* HYDROmorphone 2 MG TABLET PO PRN ×3 (00:39→10:04)
[2021-01-27] MEDS: *HR* Heparin 5,000 UNIT/ML VIAL SQ SCH (04:35)
[2021-01-27] MEDS: Piperacillin/Tazobactam 3.375 GM in 0.9 % Sodium Chloride Mini Bag 100 ML IVPB SCH (04:36)
[2021-01-27 05:45] LABS: Hemoglobin 9.3 g/dL (11.5-15.4); Immature Platelets 12.4 % (1.1-6.1); Mean Corpuscular HGB Conc 32.1 g/dL (31.6-35.5); Mean Corpuscular Hemoglobin 33.1 pg (28.0-33.3); Mean Corpuscular Volume 103.2 fL (83.0-100.0); Mean Platelet Volume 13.4 fL (9.4-12.4); Red Blood Count 2.81 M/mcL (3.82-4.97); Red Cell Distribution Width 14.8 % (11.5-14.5); White Blood Count 10.4 K/mcL (4.3-11.1)
[2021-01-27 05:49] LABS: Alanine Aminotransferase 8 Units/L (7-52); Albumin/Globulin Ratio 0.9 (1.1-2.2); Alkaline Phosphatase 98 Units/L (34-104); Aspartate Amino Transferase 15 Units/L (13-39); BUN/Creatinine Ratio 22 (6-26); Bilirubin,Total 1.4 mg/dL (0.3-1.0); Blood Urea Nitrogen 21 mg/dL (8-23); Calcium 8.7 mg/dL (8.6-10.3); Carbon Dioxide 21 mEq/L (23-29); Chloride 105 mEq/L (98-107); Globulin 3.3 g/dL (2.4-3.5); Glucose 188 mg/dL (70-105); Osmolality,Calculated 286 (280-300); Potassium 3.7 mEq/L (3.5-5.1); Sodium 134 mEq/L (136-145); Total Protein 6.3 g/dL (6.4-8.9); eGFR For African Americans > 60 (> 60); eGFR For Non-African Americans 60 (> 60)
[2021-01-27] MEDS: Insulin LISPRO 300 UNITS/3 ML VIAL SUBQ SCH ×2 (08:08→11:04)
[2021-01-27 11:15] VITALS: BP 118/69
== END 2021-01-27 12:31 | disposition home or self-care (01) | DRG 871 ==
LOC: EMEROOARM 16:44 → ICNU 21:37 → 2NNU 01-26 18:50
PROVIDERS: ADMIT Student in an Organized Health Care Education/Training Program; ATTEND Student in an Organized Health Care Education/Training Program

== ENCOUNTER 2021-03-26 11:13 | Inpatient (IN) ==
[2021-03-26] MEDS ORDERED: Piperacillin/Tazobactam 3.375 GM in Water for inj. (sterile) 20 ML IVP ONE (11:42)
[2021-03-26] MEDS ORDERED: Isovue-370 500 ML BOTTLE IVP ONE ×2 (11:42→11:49)
[2021-03-26] MEDS ORDERED: 0.9 % Sodium Chloride 500 ML IVC ONE (11:42)
[2021-03-26] MEDS ORDERED: Vancomycin 1,250 MG/262.5 ML IV.SOLN IVPB ONE (12:00)
[2021-03-26 12:37] LABS: Basophils # 0.1 K/mcL (0.0-0.2); Basophils % 0.6 %; Eosinophils % 0.2 %; Hematocrit 41.3 % (35.3-44.9); Hemoglobin 12.6 g/dL (11.5-15.4); Lymphocytes # 1.2 K/mcL (0.6-4.6); Mean Corpuscular HGB Conc 30.5 g/dL (31.6-35.5); Mean Corpuscular Hemoglobin 30.4 pg (28.0-33.3); Mean Corpuscular Volume 99.8 fL (83.0-100.0); Mean Platelet Volume 12.6 fL (9.4-12.4); Monocytes # 1.3 K/mcL (0.0-1.3); Monocytes % 6.8 %; Nucleated Red Blood Cells 0.3 /100 WBC (0); Platelet Count 155 K/mcL (140-400); Red Blood Count 4.14 M/mcL (3.82-4.97); Segmented Neutrophils % 82.4 %; White Blood Count 19.4 K/mcL (4.3-11.1)
[2021-03-26 13:03] LABS: Albumin 2.6 g/dL (3.5-5.7); Albumin/Globulin Ratio 0.7 (1.1-2.2); Bilirubin,Direct 0.3 mg/dL (0.0-0.2); Bilirubin,Indirect 0.2 mg/dL (0.0-1.0); Bilirubin,Total 0.5 mg/dL (0.3-1.0); Calcium 7.8 mg/dL (8.6-10.3); Globulin 3.6 g/dL (2.4-3.5); Potassium 3.4 mEq/L (3.5-5.1); Total Protein 6.2 g/dL (6.4-8.9); Troponin I 0.15 ng/mL (< 0.04)
[2021-03-26 13:39] LABS: Adenovirus Not Detected (Not Detect); Bordetella Pertussis Not Detected (Not Detect); Chlamydophila pneumoniae Not Detected (Not Detect); Coronavirus 229E Not Detected (Not Detect); Coronavirus HKU1 Not Detected (Not Detect); Coronavirus NL63 Not Detected (Not Detect); Coronavirus OC43 Not Detected (Not Detect); Human Metapneumovirus Not Detected (Not Detect); Human Rhinovirus/Enterovirus Not Detected (Not Detect); Influenza A Subtype 2009 H1 Not Detected (Not Detect); Influenza B Not Detected (Not Detect); Mycoplasma pneumoniae Not Detected (Not Detect); Parainfluenza Virus 1 Not Detected (Not Detect); Parainfluenza Virus 2 Not Detected (Not Detect); Parainfluenza Virus 3 Not Detected (Not Detect); Parainfluenza Virus 4 Not Detected (Not Detect); Respiratory Syncytial Virus Not Detected (Not Detect); SARS-CoV-2 Not Detected (Not Detect)
[2021-03-26] MEDS ORDERED: 0.9 % Sodium Chloride 1,000 ML IVC ONE ×2 (13:50→13:51)
[2021-03-26] MEDS ORDERED: Naloxone 0.4 MG/ML INJ IVP PRN (15:01)
[2021-03-26] MEDS ORDERED: Ringers Solution, Lactated 1,000 ML IVC ONE ×2 (15:06→16:00)
[2021-03-26] MEDS ORDERED: Fluticasone Propionate Nasal 50 MCG/SPRAY BOTTLE NS PRN (15:10)
[2021-03-26] MEDS ORDERED: D5% in Water 1,000 ML IVC PRN (15:13)
[2021-03-26] MEDS ORDERED: *HR* Dextrose 50 % in Water (Vial) 50 ML VIAL IVP PRN (15:13)
[2021-03-26] MEDS ORDERED: Dextrose Gel 15 GM/37.5 ML TUBE PO PRN ×2 (15:13)
[2021-03-26] MEDS ORDERED: Vancomycin (wt based) 1,000 MG VIAL IVPB SCH (16:00)
[2021-03-26] MEDS: Ipratropium/Albuterol Neb 3 ML IH SCH ×3 (16:13→23:00)
[2021-03-26] MEDS: Ringers Solution, Lactated 1,000 ML IVC SCH (16:53)
[2021-03-26] MEDS ORDERED: Azithromycin 500 MG in 0.9 % Sodium Chloride 250 ML IVPB SCH (17:00)
[2021-03-26] MEDS: *HR* OxyCODONE Immed Rel 5 MG TABLET PO PRN ×2 (17:16→23:15)
[2021-03-26] MEDS: Norepinephrine 4 MG/254 ML IV.SOLN IVC SCH (17:58)
[2021-03-26] MEDS: Insulin LISPRO 300 UNITS/3 ML VIAL SUBQ SCH ×2 (17:58→23:16)
[2021-03-26 18:00] LABS: Bacteria,Urine Few per hpf (None-Few); Bilirubin,Urine Negative (Negative); Blood,Urine Large (Negative); Clarity,Urine Clear (Clear); Color,Urine Yellow (Yellow); Glucose,Urine (UA) 70 mg/dL (Normal); Hyaline Casts,Urine Many per lpf (None Seen); Ketones,Urine Negative (Negative); Leukocyte Esterase,Urine Negative (Negative); Mucus,Urine Few per lpf (None-Few); Nitrite,Urine Negative (Negative); PH,Urine 6.5 pH Units (5.0-8.0); Protein,Urine 100 mg/dL (Neg-Trace); RBC,Urine TNTC per hpf (0-3); Renal Epithelial Cells,Urine Few per hpf (None-Few); Specific Gravity,Urine > 1.030 (1.010-1.025); Squamous Epithelial Cell,Urine Moderate per hpf (None-Few); Urobilinogen,Urine Normal (Normal)
[2021-03-26 18:04] LABS: INR 2.3; Prothrombin Time 25.8 Seconds (9.4-12.1)
[2021-03-26 18:20] LABS: Acetaminophen < 10 mcg/mL (10-20); Alanine Aminotransferase 14 Units/L (7-52); Albumin 2.2 g/dL (3.5-5.7); Albumin/Globulin Ratio 0.7 (1.1-2.2); Alkaline Phosphatase 161 Units/L (34-104); Aspartate Amino Transferase 15 Units/L (13-39); BUN/Creatinine Ratio 10 (6-26); Bilirubin,Total 0.4 mg/dL (0.3-1.0); Blood Urea Nitrogen 13 mg/dL (8-23); Calcium 6.9 mg/dL (8.6-10.3); Carbon Dioxide 14 mEq/L (23-29); Chloride 107 mEq/L (98-107); Globulin 3.2 g/dL (2.4-3.5); Glucose 303 mg/dL (70-105); Osmolality,Calculated 289 (280-300); Potassium 3.9 mEq/L (3.5-5.1); Sodium 134 mEq/L (136-145); Total Protein 5.4 g/dL (6.4-8.9); eGFR For African Americans 53 (> 60); eGFR For Non-African Americans 44 (> 60)
[2021-03-26 18:23] LABS: Troponin I 0.28 ng/mL (< 0.04)
[2021-03-26] MEDS ORDERED: Heparin 25,000UNIT/250ML 1/2NS 25,000 UNIT/250 ML IV.SOLN IVC SCH (18:30)
[2021-03-26 18:52] LABS: Mean Platelet Volume 13.3 fL (9.4-12.4); Red Cell Distribution Width 15.3 % (11.5-14.5)
[2021-03-26 18:54] LABS: Hemoglobin 11.8 g/dL (11.5-15.4); Immature Platelets 14.2 % (1.1-6.1); Mean Corpuscular HGB Conc 31.1 g/dL (31.6-35.5); Mean Corpuscular Hemoglobin 30.6 pg (28.0-33.3); Mean Corpuscular Volume 98.4 fL (83.0-100.0); Red Blood Count 3.86 M/mcL (3.82-4.97); White Blood Count 26.4 K/mcL (4.3-11.1)
[2021-03-26 18:59] LABS: Heparin anti-factor XA UFH < 0.04 IU/mL (0.30-0.70)
[2021-03-26 19:00] LABS: INR 2.1; Prothrombin Time 24.2 Seconds (9.4-12.1)
[2021-03-26] MEDS: FLUoxetine 20 MG CAPSULE PO SCH (19:57)
[2021-03-26] MEDS: Piperacillin/Tazobactam 3.375 GM in 0.9 % Sodium Chloride Mini Bag 100 ML IVPB SCH (19:57)
[2021-03-26] MEDS: Insulin DETEMIR 100 UNIT/ML X5UNITS SUBQ SCH (21:18)
[2021-03-26] MEDS ORDERED: *HR* Heparin 5,000 UNIT/ML VIAL SQ SCH (22:00)
[2021-03-26] MEDS ORDERED: Furosemide 20 MG/2 ML VIAL IVP ONE (23:08)
[2021-03-27] MEDS: Vancomycin 1,500 MG/265 ML IV.SOLN IVPB SCH (00:04)
[2021-03-27] MEDS: Ringers Solution, Lactated 1,000 ML IVC SCH ×5 (00:04→23:18)
[2021-03-27] MEDS: Piperacillin/Tazobactam 3.375 GM in 0.9 % Sodium Chloride Mini Bag 100 ML IVPB SCH ×3 (03:24→19:46)
[2021-03-27] MEDS: Ipratropium/Albuterol Neb 3 ML IH SCH ×5 (03:42→20:18)
[2021-03-27 05:00] LABS: VBG Ionized Calcium 1.04 mmol/L (1.15-1.35)
[2021-03-27 05:01] LABS: Basophils # 0.1 K/mcL (0.0-0.2); Basophils % 0.5 %; Eosinophils # 0.1 K/mcL (0.0-0.6); Eosinophils % 0.5 %; Hematocrit 34.1 % (35.3-44.9); Hemoglobin 10.8 g/dL (11.5-15.4); Immature Granulocytes % 2.6 % (0-4); Immature Platelets 9.5 % (1.1-6.1); Lymphocytes # 1.6 K/mcL (0.6-4.6); Lymphocytes % 9.5 %; Mean Corpuscular HGB Conc 31.7 g/dL (31.6-35.5); Mean Corpuscular Hemoglobin 30.5 pg (28.0-33.3); Mean Corpuscular Volume 96.3 fL (83.0-100.0); Mean Platelet Volume 12.9 fL (9.4-12.4); Monocytes # 1.2 K/mcL (0.0-1.3); Monocytes % 6.9 %; Neutrophils # 13.3 K/mcL (1.6-8.9); Nucleated Red Blood Cells 0.3 /100 WBC (0); Platelet Count 100 K/mcL (140-400); Red Blood Count 3.54 M/mcL (3.82-4.97); Red Cell Distribution Width 15.1 % (11.5-14.5); White Blood Count 16.6 K/mcL (4.3-11.1)
[2021-03-27 05:18] LABS: Albumin 2.3 g/dL (3.5-5.7); Albumin/Globulin Ratio 0.8 (1.1-2.2); Bilirubin,Direct 0.2 mg/dL (0.0-0.2); Bilirubin,Indirect 0.2 mg/dL (0.0-1.0); Bilirubin,Total 0.4 mg/dL (0.3-1.0); Calcium 7.1 mg/dL (8.6-10.3); Potassium 3.2 mEq/L (3.5-5.1); Total Protein 5.3 g/dL (6.4-8.9)
[2021-03-27] MEDS: Insulin LISPRO 300 UNITS/3 ML VIAL SUBQ SCH ×4 (05:20→23:17)
[2021-03-27] MEDS: Calcium Gluconate 1gm/50mL 1 GM/50 ML BAG IVPB SCH ×2 (05:44→06:40)
[2021-03-27] MEDS ORDERED: Lidocaine Viscous Oral Soln 15 ML SOLUTION ONE (07:35)
[2021-03-27] MEDS ORDERED: *HR* FentaNYL (PF) 100 MCG/2 ML VIAL ONE (07:49)
[2021-03-27] MEDS ORDERED: *HR* Midazolam HCl 5 MG/5 ML VIAL IVP ONE ×2 (07:50→07:56)
[2021-03-27] MEDS ORDERED: Lidocaine Viscous Oral Soln 15 ML SOLUTION MM ONE (07:53)
[2021-03-27] MEDS ORDERED: *HR* FentaNYL (PF) 100 MCG/2 ML VIAL IVP ONE (07:56)
[2021-03-27] MEDS: Loratadine 10 MG TABLET PO SCH (08:19)
[2021-03-27] MEDS: Insulin DETEMIR 100 UNIT/ML X5UNITS SUBQ SCH ×2 (08:23→20:03)
[2021-03-27] MEDS ORDERED: Perflutren Lipid Microsphere 1.3 ML in 0.9 % Sodium Chloride 8.7 ML IVP PRN (09:27)
[2021-03-27 09:28] LABS: Calcium 7.8 mg/dL (8.6-10.3); Magnesium 0.9 mg/dL (1.6-2.6); Phosphorous 3.3 mg/dL (2.7-4.5); Potassium 3.7 mEq/L (3.5-5.1)
[2021-03-27 14:23] LABS: BUN/Creatinine Ratio 14 (6-26); Blood Urea Nitrogen 15 mg/dL (8-23); Calcium 7.6 mg/dL (8.6-10.3); Carbon Dioxide 18 mEq/L (23-29); Chloride 109 mEq/L (98-107); Glucose 125 mg/dL (70-105); Osmolality,Calculated 286 (280-300); Phosphorous 2.7 mg/dL (2.7-4.5); Potassium 4.1 mEq/L (3.5-5.1); Sodium 137 mEq/L (136-145); eGFR For African Americans > 60 (> 60); eGFR For Non-African Americans 50 (> 60)
[2021-03-27] MEDS: *HR* OxyCODONE Immed Rel 5 MG TABLET PO PRN (14:27)
[2021-03-27 15:50] LABS: Appearance of Body Fluid Cloudy (Clear)
[2021-03-27 15:51] LABS: Volume of Body Fluid 20 mL
[2021-03-27] MEDS: Norepinephrine 4 MG/254 ML IV.SOLN IVC SCH (17:25)
[2021-03-27] MEDS: FLUoxetine 20 MG CAPSULE PO SCH (19:46)
[2021-03-27] MEDS ORDERED: Mag Hydrox/Al Hydrox/Simeth 30 ML UDC PO PRN (20:34)
[2021-03-28] MEDS: Ipratropium/Albuterol Neb 3 ML IH SCH ×7 (00:02→23:58)
[2021-03-28] MEDS: Vancomycin 1,500 MG/265 ML IV.SOLN IVPB SCH ×2 (00:28→23:40)
[2021-03-28] MEDS: Piperacillin/Tazobactam 3.375 GM in 0.9 % Sodium Chloride Mini Bag 100 ML IVPB SCH ×3 (03:21→20:15)
[2021-03-28 03:55] LABS: Basophils % 0.3 %; Eosinophils % 1.3 %; Mean Corpuscular HGB Conc 32.5 g/dL (31.6-35.5); Nucleated Red Blood Cells 0.1 /100 WBC (0); Red Cell Distribution Width 15.1 % (11.5-14.5)
[2021-03-28 03:57] LABS: Basophils # 0.1 K/mcL (0.0-0.2); Eosinophils # 0.2 K/mcL (0.0-0.6); Hematocrit 32.3 % (35.3-44.9); Hemoglobin 10.5 g/dL (11.5-15.4); Immature Granulocytes % 2.8 % (0-4); Immature Platelets 10.3 % (1.1-6.1); Lymphocytes # 1.4 K/mcL (0.6-4.6); Lymphocytes % 7.4 %; Mean Corpuscular Hemoglobin 30.3 pg (28.0-33.3); Mean Corpuscular Volume 93.4 fL (83.0-100.0); Monocytes # 1.1 K/mcL (0.0-1.3); Monocytes % 5.6 %; Neutrophils # 15.5 K/mcL (1.6-8.9); Platelet Count 97 K/mcL (140-400); Red Blood Count 3.46 M/mcL (3.82-4.97); Segmented Neutrophils % 82.6 %; White Blood Count 18.7 K/mcL (4.3-11.1)
[2021-03-28 03:57] LABS: VBG Ionized Calcium 1.07 mmol/L (1.15-1.35)
[2021-03-28 04:02] LABS: INR 1.8; Prothrombin Time 20.5 Seconds (9.4-12.1)
[2021-03-28 04:13] LABS: Magnesium 1.7 mg/dL (1.6-2.6); Phosphorous 2.4 mg/dL (2.7-4.5)
[2021-03-28 04:14] LABS: BUN/Creatinine Ratio 15 (6-26); Blood Urea Nitrogen 14 mg/dL (8-23); Calcium 7.5 mg/dL (8.6-10.3); Carbon Dioxide 19 mEq/L (23-29); Chloride 110 mEq/L (98-107); Glucose 82 mg/dL (70-105); Osmolality,Calculated 284 (280-300); Potassium 3.6 mEq/L (3.5-5.1); Sodium 137 mEq/L (136-145); eGFR For African Americans > 60 (> 60); eGFR For Non-African Americans > 60 (> 60)
[2021-03-28] MEDS: Insulin LISPRO 300 UNITS/3 ML VIAL SUBQ SCH ×4 (04:32→23:39)
[2021-03-28] MEDS: Calcium Gluconate 1gm/50mL 1 GM/50 ML BAG IVPB SCH ×4 (04:33→18:17)
[2021-03-28] MEDS ORDERED: Potassium Phosphate 44 MEQ in 0.9 % Sodium Chloride 250 ML IVPB ONE (07:33)
[2021-03-28] MEDS ORDERED: Furosemide 20 MG/2 ML VIAL IVP ONE ×2 (08:55→09:15)
[2021-03-28] MEDS ORDERED: Azithromycin 500 MG in 0.9 % Sodium Chloride 250 ML IVPB SCH (09:00)
[2021-03-28] MEDS: Ringers Solution, Lactated 1,000 ML IVC SCH (09:21)
[2021-03-28] MEDS: Loratadine 10 MG TABLET PO SCH (09:21)
[2021-03-28] MEDS: Insulin DETEMIR 100 UNIT/ML X5UNITS SUBQ SCH ×2 (09:21→20:28)
[2021-03-28] MEDS: Doxycycline 100 MG in 0.9 % Sodium Chloride Mini Bag 100 ML IVPB SCH ×2 (09:44→20:16)
[2021-03-28] MEDS: *HR* OxyCODONE Immed Rel 5 MG TABLET PO PRN ×3 (11:02→20:14)
[2021-03-28] MEDS: *HR* Enoxaparin 40 MG/0.4 ML SYRINGE SQ SCH (12:11)
[2021-03-28 15:13] LABS: VBG Ionized Calcium 1.08 mmol/L (1.15-1.35)
[2021-03-28 15:30] LABS: Magnesium 2.4 mg/dL (1.6-2.6); Phosphorous 4.3 mg/dL (2.7-4.5); Potassium 3.8 mEq/L (3.5-5.1)
[2021-03-28] MEDS: Norepinephrine 4 MG/254 ML IV.SOLN IVC SCH (17:31)
[2021-03-28] MEDS: hydrOXYzine pamoate 25 MG CAPSULE PO PRN (17:55)
[2021-03-28] MEDS ORDERED: Enoxaparin Weight Dosing SQ SCH (18:00)
[2021-03-28] MEDS: FLUoxetine 20 MG CAPSULE PO SCH (20:15)
[2021-03-29] MEDS: *HR* OxyCODONE Immed Rel 5 MG TABLET PO PRN ×5 (00:15→21:20)
[2021-03-29] MEDS: hydrOXYzine pamoate 25 MG CAPSULE PO PRN ×2 (00:33→13:12)
[2021-03-29] MEDS: Ipratropium/Albuterol Neb 3 ML IH SCH ×6 (03:57→23:28)
[2021-03-29 04:09] LABS: Basophils % 0.3 %; Immature Granulocytes % 1.6 % (0-4); Nucleated Red Blood Cells 0.1 /100 WBC (0)
[2021-03-29 04:10] LABS: Basophils # 0.1 K/mcL (0.0-0.2); Eosinophils # 0.4 K/mcL (0.0-0.6); Eosinophils % 2.1 %; Hematocrit 31.4 % (35.3-44.9); Hemoglobin 10.2 g/dL (11.5-15.4); Immature Platelets 12.6 % (1.1-6.1); Lymphocytes # 1.1 K/mcL (0.6-4.6); Lymphocytes % 6.2 %; Mean Corpuscular HGB Conc 32.5 g/dL (31.6-35.5); Mean Corpuscular Volume 92.4 fL (83.0-100.0); Monocytes % 5.4 %; Red Cell Distribution Width 15.1 % (11.5-14.5); Segmented Neutrophils % 84.4 %; White Blood Count 17.8 K/mcL (4.3-11.1)
[2021-03-29 04:11] LABS: Platelet Count 76 K/mcL (140-400)
[2021-03-29] MEDS: Piperacillin/Tazobactam 3.375 GM in 0.9 % Sodium Chloride Mini Bag 100 ML IVPB SCH ×3 (04:16→20:07)
[2021-03-29 04:24] LABS: INR 1.9; Prothrombin Time 21.1 Seconds (9.4-12.1)
[2021-03-29 04:26] LABS: VBG Ionized Calcium 1.15 mmol/L (1.15-1.35)
[2021-03-29 04:28] LABS: BUN/Creatinine Ratio 16 (6-26); Blood Urea Nitrogen 14 mg/dL (8-23); Carbon Dioxide 21 mEq/L (23-29); Chloride 110 mEq/L (98-107); Glucose 134 mg/dL (70-105); Osmolality,Calculated 288 (280-300); Potassium 3.6 mEq/L (3.5-5.1); Sodium 138 mEq/L (136-145); eGFR For African Americans > 60 (> 60); eGFR For Non-African Americans > 60 (> 60)
[2021-03-29 04:29] LABS: Magnesium 2.1 mg/dL (1.6-2.6); Phosphorous 2.6 mg/dL (2.7-4.5)
[2021-03-29] MEDS: Insulin LISPRO 300 UNITS/3 ML VIAL SUBQ SCH ×4 (05:34→23:05)
[2021-03-29] MEDS ORDERED: Furosemide 40 MG/4 ML VIAL IVP ONE (08:36)
[2021-03-29] MEDS: Doxycycline 100 MG in 0.9 % Sodium Chloride Mini Bag 100 ML IVPB SCH ×2 (08:53→20:06)
[2021-03-29] MEDS: Loratadine 10 MG TABLET PO SCH (08:57)
[2021-03-29] MEDS: Insulin DETEMIR 100 UNIT/ML X5UNITS SUBQ SCH ×2 (09:01→20:07)
[2021-03-29] MEDS ORDERED: Potassium Phosphate 44 MEQ in 0.9 % Sodium Chloride 250 ML IVPB ONE (10:44)
[2021-03-29] MEDS: *HR* Enoxaparin 40 MG/0.4 ML SYRINGE SQ SCH (11:52)
[2021-03-29 15:32] LABS: A.galactomannan Ag Index 0.04
[2021-03-29] MEDS: Norepinephrine 4 MG/254 ML IV.SOLN IVC SCH (16:57)
[2021-03-29] MEDS: *HR* LORazepam 0.5 MG TABLET PO PRN (17:12)
[2021-03-29] MEDS: GuaiFENesin Liq 200 MG/10 ML UDC PO PRN (22:51)
[2021-03-30] MEDS ORDERED: Furosemide 20 MG/2 ML VIAL IVP ONE ×2 (00:44→13:48)
[2021-03-30] MEDS: Vancomycin 1,500 MG/265 ML IV.SOLN IVPB SCH (00:48)
[2021-03-30] MEDS: *HR* LORazepam 0.5 MG TABLET PO PRN ×3 (01:27→17:11)
[2021-03-30] MEDS: *HR* OxyCODONE Immed Rel 5 MG TABLET PO PRN ×4 (01:27→18:30)
[2021-03-30] MEDS: Piperacillin/Tazobactam 3.375 GM in 0.9 % Sodium Chloride Mini Bag 100 ML IVPB SCH ×3 (03:09→19:54)
[2021-03-30 03:23] LABS: Hemoglobin 9.3 g/dL (11.5-15.4); Lymphocytes % 8.6 %
[2021-03-30 03:26] LABS: Basophils % 0.2 %; Eosinophils # 0.3 K/mcL (0.0-0.6); Eosinophils % 2.6 %; Hematocrit 28.9 % (35.3-44.9); Immature Platelets 12.2 % (1.1-6.1); Lymphocytes # 1.1 K/mcL (0.6-4.6); Mean Corpuscular HGB Conc 32.2 g/dL (31.6-35.5); Mean Corpuscular Hemoglobin 30.3 pg (28.0-33.3); Mean Corpuscular Volume 94.1 fL (83.0-100.0); Monocytes # 0.7 K/mcL (0.0-1.3); Monocytes % 5.3 %; Platelet Count 53 K/mcL (140-400); Red Blood Count 3.07 M/mcL (3.82-4.97); Red Cell Distribution Width 15.1 % (11.5-14.5); Segmented Neutrophils % 82.3 %; White Blood Count 12.2 K/mcL (4.3-11.1)
[2021-03-30 03:31] LABS: INR 1.8; Prothrombin Time 20.8 Seconds (9.4-12.1)
[2021-03-30 03:32] LABS: VBG Ionized Calcium 1.02 mmol/L (1.15-1.35)
[2021-03-30] MEDS: Ipratropium/Albuterol Neb 3 ML IH SCH ×6 (03:41→23:34)
[2021-03-30 03:43] LABS: BUN/Creatinine Ratio 14 (6-26); Blood Urea Nitrogen 11 mg/dL (8-23); Calcium 7.2 mg/dL (8.6-10.3); Carbon Dioxide 23 mEq/L (23-29); Chloride 107 mEq/L (98-107); Glucose 109 mg/dL (70-105); Magnesium 1.9 mg/dL (1.6-2.6); Osmolality,Calculated 286 (280-300); Phosphorous 3.5 mg/dL (2.7-4.5); Potassium 2.9 mEq/L (3.5-5.1); Sodium 138 mEq/L (136-145); eGFR For African Americans > 60 (> 60); eGFR For Non-African Americans > 60 (> 60)
[2021-03-30] MEDS ORDERED: Potassium Chloride 40 MEQ/200 ML BAG IVPB PRN (04:18)
[2021-03-30] MEDS: Calcium Gluconate 1gm/50mL 1 GM/50 ML BAG IVPB PRN ×2 (04:29→14:01)
[2021-03-30 05:01] LABS: ABG Base Excess 0 mEq/L (-2 to 3); ABG HCO3 25 mEq/L (21-27); ABG Oxygen Saturation 94 % (95-98); ABG PCO2 43 mmHg (35-45); ABG PH 7.38 pH Units (7.32-7.45); ABG PO2 73 mmHg (85-104); ABG TCO2 26 mEq/L (20-26)
[2021-03-30] MEDS: Insulin LISPRO 300 UNITS/3 ML VIAL SUBQ SCH ×4 (06:10→23:15)
[2021-03-30 08:27] LABS: Influenza A PCR Body Fluid NOT DETECTED; Influenza B PCR Body Fluid NOT DETECTED; RVP Body Fluid Source BAL
[2021-03-30 09:11] LABS: RSV PCR Body Fluid NOT DETECTED
[2021-03-30] MEDS ORDERED: Furosemide 40 MG/4 ML VIAL IVP ONE (09:29)
[2021-03-30] MEDS: Loratadine 10 MG TABLET PO SCH (09:45)
[2021-03-30] MEDS: Insulin DETEMIR 100 UNIT/ML X5UNITS SUBQ SCH ×2 (09:46→19:56)
[2021-03-30] MEDS: Doxycycline 100 MG in 0.9 % Sodium Chloride Mini Bag 100 ML IVPB SCH ×2 (09:46→19:55)
[2021-03-30] MEDS ORDERED: *HR* Phytonadione 5 MG TABLET PO ONE (11:02)
[2021-03-30 11:15] LABS: VBG Ionized Calcium 1.06 mmol/L (1.15-1.35)
[2021-03-30 11:37] LABS: Magnesium 1.9 mg/dL (1.6-2.6); Potassium 3.4 mEq/L (3.5-5.1)
[2021-03-30] MEDS: Norepinephrine 4 MG/254 ML IV.SOLN IVC SCH (18:15)
[2021-03-30 20:07] LABS: VBG Ionized Calcium 1.09 mmol/L (1.15-1.35)
[2021-03-30 20:22] LABS: Magnesium 1.8 mg/dL (1.6-2.6); Potassium 3.4 mEq/L (3.5-5.1)
[2021-03-31] MEDS: *HR* LORazepam 0.5 MG TABLET PO PRN ×4 (01:27→20:22)
[2021-03-31] MEDS: *HR* OxyCODONE Immed Rel 5 MG TABLET PO PRN ×2 (01:27→05:26)
[2021-03-31] MEDS: Piperacillin/Tazobactam 3.375 GM in 0.9 % Sodium Chloride Mini Bag 100 ML IVPB SCH ×3 (03:03→20:23)
[2021-03-31 03:27] LABS: VBG Ionized Calcium 1.11 mmol/L (1.15-1.35)
[2021-03-31 03:28] LABS: Hemoglobin 9.6 g/dL (11.5-15.4)
[2021-03-31 03:30] LABS: Basophils % 0.4 %; Eosinophils # 0.4 K/mcL (0.0-0.6); Eosinophils % 3.9 %; Hematocrit 29.6 % (35.3-44.9); Immature Granulocytes % 0.6 % (0-4); Immature Platelets 13.6 % (1.1-6.1); Lymphocytes # 1.1 K/mcL (0.6-4.6); Lymphocytes % 9.7 %; Mean Corpuscular HGB Conc 32.4 g/dL (31.6-35.5); Mean Corpuscular Hemoglobin 30.9 pg (28.0-33.3); Mean Corpuscular Volume 95.2 fL (83.0-100.0); Monocytes # 0.7 K/mcL (0.0-1.3); Monocytes % 6.2 %; Neutrophils # 8.6 K/mcL (1.6-8.9); Red Blood Count 3.11 M/mcL (3.82-4.97); Red Cell Distribution Width 15.7 % (11.5-14.5); Segmented Neutrophils % 79.2 %; White Blood Count 10.8 K/mcL (4.3-11.1)
[2021-03-31] MEDS: Ipratropium/Albuterol Neb 3 ML IH SCH ×6 (03:33→23:53)
[2021-03-31 03:51] LABS: BUN/Creatinine Ratio 16 (6-26); Blood Urea Nitrogen 12 mg/dL (8-23); Calcium 7.8 mg/dL (8.6-10.3); Carbon Dioxide 29 mEq/L (23-29); Chloride 106 mEq/L (98-107); Glucose 158 mg/dL (70-105); Magnesium 1.8 mg/dL (1.6-2.6); Osmolality,Calculated 293 (280-300); Phosphorous 2.9 mg/dL (2.7-4.5); Potassium 3.5 mEq/L (3.5-5.1); Sodium 140 mEq/L (136-145); eGFR For African Americans > 60 (> 60); eGFR For Non-African Americans > 60 (> 60)
[2021-03-31] MEDS: Potassium Chloride 40 MEQ/200 ML BAG IVPB PRN ×3 (03:58→15:22)
[2021-03-31 04:11] LABS: Platelet Count 50 K/mcL (140-400)
[2021-03-31] MEDS: Insulin LISPRO 300 UNITS/3 ML VIAL SUBQ SCH ×4 (05:30→23:34)
[2021-03-31] MEDS: Loratadine 10 MG TABLET PO SCH (08:05)
[2021-03-31] MEDS: Doxycycline 100 MG in 0.9 % Sodium Chloride Mini Bag 100 ML IVPB SCH ×2 (08:07→20:23)
[2021-03-31] MEDS: Insulin DETEMIR 100 UNIT/ML X5UNITS SUBQ SCH ×2 (08:08→20:24)
[2021-03-31] MEDS ORDERED: Furosemide 40 MG/4 ML VIAL IVP ONE (08:17)
[2021-03-31] MEDS: GuaiFENesin Liq 200 MG/10 ML UDC PO PRN (09:20)
[2021-03-31] MEDS: *HR* OxyCODONE ER (12 HR) 10 MG TABLET PO SCH ×2 (11:54→17:21)
[2021-03-31] MEDS: Morphine Sulfate 2 MG/ML SYRINGE IVP PRN ×3 (12:26→20:22)
[2021-03-31 13:52] LABS: Activated Partial Thrombo Time 31.5 Seconds (26.0-36.0); INR 1.6; Prothrombin Time 18.2 Seconds (9.4-12.1)
[2021-03-31] MEDS: Norepinephrine 4 MG/254 ML IV.SOLN IVC SCH ×2 (16:08→21:32)
[2021-03-31] MEDS: FLUoxetine 20 MG CAPSULE PO SCH (20:22)
[2021-04-01] MEDS: Morphine Sulfate 2 MG/ML SYRINGE IVP PRN ×5 (00:14→19:45)
[2021-04-01] MEDS: Ipratropium/Albuterol Neb 3 ML IH SCH ×6 (03:52→23:16)
[2021-04-01 04:04] LABS: VBG Ionized Calcium 1.14 mmol/L (1.15-1.35)
[2021-04-01] MEDS: Piperacillin/Tazobactam 3.375 GM in 0.9 % Sodium Chloride Mini Bag 100 ML IVPB SCH ×3 (04:16→19:34)
[2021-04-01 04:18] LABS: Basophils # 0.1 K/mcL (0.0-0.2); Basophils % 0.7 %; Eosinophils # 0.7 K/mcL (0.0-0.6); Eosinophils % 5.5 %; Hematocrit 31.3 % (35.3-44.9); Hemoglobin 9.9 g/dL (11.5-15.4); INR 1.6; Immature Granulocytes % 0.7 % (0-4); Immature Platelets 20.7 % (1.1-6.1); Lymphocytes # 0.9 K/mcL (0.6-4.6); Lymphocytes % 7.4 %; Mean Corpuscular HGB Conc 31.6 g/dL (31.6-35.5); Mean Corpuscular Volume 94.8 fL (83.0-100.0); Monocytes % 8.5 %; Neutrophils # 9.2 K/mcL (1.6-8.9); Prothrombin Time 18.5 Seconds (9.4-12.1); Red Cell Distribution Width 15.9 % (11.5-14.5); Segmented Neutrophils % 77.2 %; White Blood Count 11.9 K/mcL (4.3-11.1)
[2021-04-01 04:20] LABS: Platelet Count 50 K/mcL (140-400)
[2021-04-01 04:28] LABS: BUN/Creatinine Ratio 21 (6-26); Blood Urea Nitrogen 15 mg/dL (8-23); Calcium 8.1 mg/dL (8.6-10.3); Carbon Dioxide 28 mEq/L (23-29); Chloride 103 mEq/L (98-107); Glucose 139 mg/dL (70-105); Osmolality,Calculated 289 (280-300); Sodium 138 mEq/L (136-145); eGFR For African Americans > 60 (> 60); eGFR For Non-African Americans > 60 (> 60)
[2021-04-01] MEDS: Calcium Gluconate 1gm/50mL 1 GM/50 ML BAG IVPB PRN (04:37)
[2021-04-01] MEDS: Potassium Chloride 40 MEQ/200 ML BAG IVPB PRN (04:38)
[2021-04-01] MEDS: Insulin LISPRO 300 UNITS/3 ML VIAL SUBQ SCH ×3 (06:08→17:23)
[2021-04-01] MEDS: *HR* OxyCODONE ER (12 HR) 10 MG TABLET PO SCH ×2 (06:10→17:18)
[2021-04-01 06:43] LABS: Magnesium 1.9 mg/dL (1.6-2.6); Phosphorous 2.8 mg/dL (2.7-4.5)
[2021-04-01] MEDS ORDERED: Furosemide 40 MG/4 ML VIAL IVP ONE ×2 (08:14→14:36)
[2021-04-01] MEDS: Insulin DETEMIR 100 UNIT/ML X5UNITS SUBQ SCH ×2 (09:00→19:35)
[2021-04-01] MEDS ORDERED: Isovue-370 500 ML BOTTLE IVP ONE (09:20)
[2021-04-01] MEDS: *HR* LORazepam 0.5 MG TABLET PO PRN ×3 (09:26→23:12)
[2021-04-01] MEDS: Doxycycline 100 MG in 0.9 % Sodium Chloride Mini Bag 100 ML IVPB SCH ×2 (09:26→19:33)
[2021-04-01] MEDS: *HR* Enoxaparin 40 MG/0.4 ML SYRINGE SQ SCH (09:26)
[2021-04-01] MEDS: Loratadine 10 MG TABLET PO SCH (09:26)
[2021-04-01 11:43] LABS: VBG Ionized Calcium 1.14 mmol/L (1.15-1.35)
[2021-04-01] MEDS: Ondansetron 4 MG/2 ML VIAL IVP PRN (12:26)
[2021-04-01] MEDS: methylPREDNISolone 125 MG/2 ML VIAL IVP SCH (17:18)
[2021-04-01] MEDS: Norepinephrine 4 MG/254 ML IV.SOLN IVC SCH (17:19)
[2021-04-01] MEDS: FLUoxetine 20 MG CAPSULE PO SCH (19:33)
[2021-04-02] MEDS: Morphine Sulfate 2 MG/ML SYRINGE IVP PRN ×4 (00:23→19:24)
[2021-04-02] MEDS: Insulin LISPRO 300 UNITS/3 ML VIAL SUBQ SCH ×4 (01:01→18:17)
[2021-04-02] MEDS: Piperacillin/Tazobactam 3.375 GM in 0.9 % Sodium Chloride Mini Bag 100 ML IVPB SCH ×3 (03:50→20:35)
[2021-04-02] MEDS: Ipratropium/Albuterol Neb 3 ML IH SCH ×5 (03:56→19:55)
[2021-04-02 04:07] LABS: Hemoglobin 10.3 g/dL (11.5-15.4)
[2021-04-02 04:09] LABS: Basophils % 0.2 %; Immature Granulocytes % 0.7 % (0-4); Immature Platelets 21.7 % (1.1-6.1); Lymphocytes # 0.5 K/mcL (0.6-4.6); Lymphocytes % 5.7 %; Mean Corpuscular HGB Conc 31.2 g/dL (31.6-35.5); Mean Corpuscular Volume 96.2 fL (83.0-100.0); Monocytes # 0.3 K/mcL (0.0-1.3); Monocytes % 3.3 %; Neutrophils # 7.3 K/mcL (1.6-8.9); Platelet Count 55 K/mcL (140-400); Red Blood Count 3.43 M/mcL (3.82-4.97); Red Cell Distribution Width 16.2 % (11.5-14.5); Segmented Neutrophils % 90.1 %; White Blood Count 8.1 K/mcL (4.3-11.1)
[2021-04-02 04:14] LABS: VBG Ionized Calcium 1.12 mmol/L (1.15-1.35)
[2021-04-02 04:25] LABS: BUN/Creatinine Ratio 27 (6-26); Blood Urea Nitrogen 22 mg/dL (8-23); Calcium 8.4 mg/dL (8.6-10.3); Carbon Dioxide 32 mEq/L (23-29); Chloride 98 mEq/L (98-107); Glucose 247 mg/dL (70-105); Osmolality,Calculated 296 (280-300); Potassium 4.5 mEq/L (3.5-5.1); Sodium 137 mEq/L (136-145); eGFR For African Americans > 60 (> 60); eGFR For Non-African Americans > 60 (> 60)
[2021-04-02 04:27] LABS: INR 1.6; Prothrombin Time 17.7 Seconds (9.4-12.1)
[2021-04-02] MEDS: Calcium Gluconate 1gm/50mL 1 GM/50 ML BAG IVPB PRN (04:44)
[2021-04-02] MEDS: *HR* Enoxaparin 40 MG/0.4 ML SYRINGE SQ SCH (05:44)
[2021-04-02] MEDS: methylPREDNISolone 125 MG/2 ML VIAL IVP SCH ×2 (05:44→18:17)
[2021-04-02] MEDS: *HR* OxyCODONE ER (12 HR) 10 MG TABLET PO SCH ×2 (05:45→18:17)
[2021-04-02] MEDS: *HR* LORazepam 0.5 MG TABLET PO PRN ×2 (05:45→18:17)
[2021-04-02] MEDS ORDERED: Furosemide 40 MG/4 ML VIAL IVP ONE (07:19)
[2021-04-02] MEDS ORDERED: *HR* LORazepam 2 MG/ML VIAL IVP ONE (08:24)
[2021-04-02] MEDS ORDERED: Morphine Sulfate 2 MG/ML SYRINGE IVP ONE (08:24)
[2021-04-02] MEDS: Doxycycline 100 MG in 0.9 % Sodium Chloride Mini Bag 100 ML IVPB SCH ×2 (09:42→20:36)
[2021-04-02] MEDS: Loratadine 10 MG TABLET PO SCH (09:42)
[2021-04-02] MEDS: Ondansetron 4 MG/2 ML VIAL IVP PRN (09:44)
[2021-04-02] MEDS: Insulin DETEMIR 100 UNIT/ML X5UNITS SUBQ SCH ×2 (09:44→20:35)
[2021-04-02] MEDS: Norepinephrine 4 MG/254 ML IV.SOLN IVC SCH (12:24)
[2021-04-02] MEDS: Pantoprazole 40 MG VIAL IVP SCH (13:00)
[2021-04-02 16:13] LABS: Adenovirus F 40/41 PCR Not detected (Not detect); Astrovirus PCR Not detected (Not detect); C.difficile Toxin A/B Gene PCR Not detected (Not detect); Campylobacter by PCR Not detected (Not detect); Cryptosporidium by PCR Not detected (Not detect); Cyclospora cayetanensis PCR Not detected (Not detect); E. coli O157 by PCR Not detected (Not detect); Entamoeba histolytica PCR Not detected (Not detect); Enteroaggregative E.coli(EAEC) Not detected (Not detect); Enteropathogenic E.coli(EPEC) Not detected (Not detect); Enterotoxigenic E.coli (ETEC) Not detected (Not detect); Giardia lamblia PCR Not detected (Not detect); Norovirus GI/GII PCR Not detected (Not detect); Plesiomonas shigelloides PCR Not detected (Not detect); Rotavirus A PCR Not detected (Not detect); Salmonella PCR Not detected (Not detect); Sapovirus PCR Not detected (Not detect); Shig/EnteroinvasiveE coli EIEC Not detected (Not detect); Shigalike tox-prod E coli STEC Not detected (Not detect); Vibrio PCR Not detected (Not detect); Vibrio cholerae PCR Not detected (Not detect); Yersinia enterocolitica PCR Not detected (Not detect)
[2021-04-02] MEDS: FLUoxetine 20 MG CAPSULE PO SCH (20:35)
[2021-04-03] MEDS ORDERED: Magnesium Sulfate 1 GM/102 ML PIGGYBACK IVPB ONE (00:12)
[2021-04-03] MEDS: Insulin LISPRO 300 UNITS/3 ML VIAL SUBQ SCH ×5 (00:29→17:45)
[2021-04-03] MEDS: Ipratropium/Albuterol Neb 3 ML IH SCH ×7 (00:43→23:33)
[2021-04-03] MEDS: Morphine Sulfate 2 MG/ML SYRINGE IVP PRN ×4 (00:51→19:43)
[2021-04-03] MEDS: Piperacillin/Tazobactam 3.375 GM in 0.9 % Sodium Chloride Mini Bag 100 ML IVPB SCH ×3 (03:58→19:50)
[2021-04-03 05:27] LABS: Basophils % 0.1 %; Hematocrit 32.4 % (35.3-44.9); Hemoglobin 9.9 g/dL (11.5-15.4); Immature Granulocytes % 0.7 % (0-4); Lymphocytes # 0.6 K/mcL (0.6-4.6); Mean Corpuscular HGB Conc 30.6 g/dL (31.6-35.5); Mean Corpuscular Hemoglobin 29.8 pg (28.0-33.3); Mean Corpuscular Volume 97.6 fL (83.0-100.0); Monocytes # 0.6 K/mcL (0.0-1.3); Monocytes % 5.9 %; Platelet Count 84 K/mcL (140-400); Red Blood Count 3.32 M/mcL (3.82-4.97); Red Cell Distribution Width 16.1 % (11.5-14.5); Segmented Neutrophils % 87.3 %; White Blood Count 9.8 K/mcL (4.3-11.1)
[2021-04-03 05:28] LABS: Neutrophils # 8.6 K/mcL (1.6-8.9)
[2021-04-03 05:36] LABS: VBG Ionized Calcium 1.11 mmol/L (1.15-1.35)
[2021-04-03] MEDS: *HR* Enoxaparin 40 MG/0.4 ML SYRINGE SQ SCH (05:37)
[2021-04-03] MEDS: methylPREDNISolone 125 MG/2 ML VIAL IVP SCH ×2 (05:37→17:44)
[2021-04-03 06:42] LABS: BUN/Creatinine Ratio 40 (6-26); Blood Urea Nitrogen 32 mg/dL (8-23); Calcium 8.9 mg/dL (8.6-10.3); Carbon Dioxide 32 mEq/L (23-29); Chloride 99 mEq/L (98-107); Glucose 255 mg/dL (70-105); Osmolality,Calculated 302 (280-300); Sodium 138 mEq/L (136-145); eGFR For African Americans > 60 (> 60); eGFR For Non-African Americans > 60 (> 60)
[2021-04-03] MEDS: *HR* OxyCODONE ER (12 HR) 10 MG TABLET PO SCH ×2 (07:03→17:45)
[2021-04-03 07:05] LABS: Magnesium 2.1 mg/dL (1.6-2.6); Phosphorous 3.6 mg/dL (2.7-4.5)
[2021-04-03] MEDS: Loratadine 10 MG TABLET PO SCH (07:50)
[2021-04-03] MEDS: Doxycycline 100 MG in 0.9 % Sodium Chloride Mini Bag 100 ML IVPB SCH ×2 (08:22→19:49)
[2021-04-03] MEDS: Pantoprazole 40 MG VIAL IVP SCH (08:23)
[2021-04-03] MEDS: Insulin DETEMIR 100 UNIT/ML X5UNITS SUBQ SCH ×2 (08:23→19:55)
[2021-04-03] MEDS: Dexmedetomidine HCl 400 MCG/100 ML MLS IVC SCH (08:23)
[2021-04-03] MEDS ORDERED: Furosemide 40 MG/4 ML VIAL IVP ONE (08:59)
[2021-04-03 13:56] LABS: ANA IgG by ELISA NONE DETECTED (None Detected)
[2021-04-03] MEDS: Norepinephrine 4 MG/254 ML IV.SOLN IVC SCH (18:08)
[2021-04-03] MEDS: FLUoxetine 20 MG CAPSULE PO SCH (19:53)
[2021-04-04] MEDS: Insulin LISPRO 300 UNITS/3 ML VIAL SUBQ SCH ×6 (00:21→23:10)
[2021-04-04] MEDS: Dexmedetomidine HCl 400 MCG/100 ML MLS IVC SCH ×2 (01:32→07:36)
[2021-04-04] MEDS: Ipratropium/Albuterol Neb 3 ML IH SCH ×6 (03:28→23:38)
[2021-04-04] MEDS: Piperacillin/Tazobactam 3.375 GM in 0.9 % Sodium Chloride Mini Bag 100 ML IVPB SCH ×3 (03:53→20:34)
[2021-04-04 04:25] LABS: Hemoglobin 10.3 g/dL (11.5-15.4)
[2021-04-04 04:26] LABS: Basophils % 0.2 %; Hematocrit 32.6 % (35.3-44.9); Immature Granulocytes % 0.5 % (0-4); Immature Platelets 21.4 % (1.1-6.1); Lymphocytes # 0.5 K/mcL (0.6-4.6); Lymphocytes % 9.2 %; Mean Corpuscular HGB Conc 31.6 g/dL (31.6-35.5); Mean Corpuscular Hemoglobin 30.6 pg (28.0-33.3); Mean Corpuscular Volume 96.7 fL (83.0-100.0); Monocytes # 0.5 K/mcL (0.0-1.3); Monocytes % 8.5 %; Neutrophils # 4.8 K/mcL (1.6-8.9); Red Blood Count 3.37 M/mcL (3.82-4.97); Red Cell Distribution Width 16.2 % (11.5-14.5); Segmented Neutrophils % 81.6 %; White Blood Count 5.9 K/mcL (4.3-11.1)
[2021-04-04 04:29] LABS: Platelet Count 79 K/mcL (140-400)
[2021-04-04 04:40] LABS: BUN/Creatinine Ratio 43 (6-26); Blood Urea Nitrogen 35 mg/dL (8-23); Calcium 8.7 mg/dL (8.6-10.3); Carbon Dioxide 33 mEq/L (23-29); Chloride 96 mEq/L (98-107); Glucose 356 mg/dL (70-105); Osmolality,Calculated 304 (280-300); Potassium 4.1 mEq/L (3.5-5.1); Sodium 136 mEq/L (136-145); eGFR For African Americans > 60 (> 60); eGFR For Non-African Americans > 60 (> 60)
[2021-04-04] MEDS: *HR* OxyCODONE ER (12 HR) 10 MG TABLET PO SCH ×2 (05:09→17:36)
[2021-04-04] MEDS: methylPREDNISolone 125 MG/2 ML VIAL IVP SCH (05:11)
[2021-04-04] MEDS: *HR* Enoxaparin 40 MG/0.4 ML SYRINGE SQ SCH (05:11)
[2021-04-04] MEDS: *HR* LORazepam 0.5 MG TABLET PO PRN ×3 (05:31→20:33)
[2021-04-04] MEDS ORDERED: Furosemide 20 MG/2 ML VIAL IVP ONE (07:56)
[2021-04-04 08:28] LABS: Serine Protease-3 Antibody 3 AU/mL (0-19)
[2021-04-04] MEDS: Pantoprazole 40 MG VIAL IVP SCH (09:19)
[2021-04-04] MEDS: Insulin DETEMIR 100 UNIT/ML X5UNITS SUBQ SCH ×2 (09:19→20:34)
[2021-04-04] MEDS: Loratadine 10 MG TABLET PO SCH (09:19)
[2021-04-04] MEDS: Morphine Sulfate 2 MG/ML SYRINGE IVP PRN ×3 (13:02→23:28)
[2021-04-04 14:34] LABS: Adenovirus Not Detected (Not Detect); Bordetella Pertussis Not Detected (Not Detect); Chlamydophila pneumoniae Not Detected (Not Detect); Coronavirus 229E Not Detected (Not Detect); Coronavirus HKU1 Not Detected (Not Detect); Coronavirus NL63 Not Detected (Not Detect); Coronavirus OC43 Not Detected (Not Detect); Human Metapneumovirus Not Detected (Not Detect); Human Rhinovirus/Enterovirus Not Detected (Not Detect); Influenza A Subtype 2009 H1 Not Detected (Not Detect); Influenza B Not Detected (Not Detect); Mycoplasma pneumoniae Not Detected (Not Detect); Parainfluenza Virus 1 Not Detected (Not Detect); Parainfluenza Virus 2 Not Detected (Not Detect); Parainfluenza Virus 3 Not Detected (Not Detect); Parainfluenza Virus 4 Not Detected (Not Detect); Respiratory Syncytial Virus Not Detected (Not Detect); SARS-CoV-2 Not Detected (Not Detect)
[2021-04-04] MEDS: MethylPREDNISolone 40 MG/ML VIAL IVP SCH (17:36)
[2021-04-04] MEDS: Norepinephrine 4 MG/254 ML IV.SOLN IVC SCH (17:41)
[2021-04-04] MEDS: FLUoxetine 20 MG CAPSULE PO SCH (20:33)
[2021-04-05] MEDS: *HR* LORazepam 0.5 MG TABLET PO PRN ×2 (02:33→20:14)
[2021-04-05] MEDS: Morphine Sulfate 2 MG/ML SYRINGE IVP PRN ×4 (03:28→20:15)
[2021-04-05] MEDS: Piperacillin/Tazobactam 3.375 GM in 0.9 % Sodium Chloride Mini Bag 100 ML IVPB SCH ×3 (03:28→20:15)
[2021-04-05] MEDS: Insulin LISPRO 300 UNITS/3 ML VIAL SUBQ SCH ×6 (03:29→23:47)
[2021-04-05] MEDS: Dexmedetomidine HCl 400 MCG/100 ML MLS IVC SCH ×2 (03:33→07:24)
[2021-04-05] MEDS: Ipratropium/Albuterol Neb 3 ML IH SCH ×6 (03:35→23:25)
[2021-04-05 03:59] LABS: Basophils % 0.1 %; Eosinophils % 0.1 %; Hemoglobin 11.2 g/dL (11.5-15.4)
[2021-04-05 04:01] LABS: Hematocrit 35.2 % (35.3-44.9); Immature Granulocytes % 0.6 % (0-4); Lymphocytes # 1.1 K/mcL (0.6-4.6); Lymphocytes % 9.9 %; Mean Corpuscular HGB Conc 31.8 g/dL (31.6-35.5); Mean Corpuscular Hemoglobin 30.7 pg (28.0-33.3); Mean Corpuscular Volume 96.4 fL (83.0-100.0); Monocytes # 1.3 K/mcL (0.0-1.3); Monocytes % 11.4 %; Neutrophils # 8.7 K/mcL (1.6-8.9); Platelet Count 129 K/mcL (140-400); Red Blood Count 3.65 M/mcL (3.82-4.97); Red Cell Distribution Width 16.4 % (11.5-14.5); Segmented Neutrophils % 77.9 %; White Blood Count 11.1 K/mcL (4.3-11.1)
[2021-04-05 04:16] LABS: BUN/Creatinine Ratio 47 (6-26); Blood Urea Nitrogen 36 mg/dL (8-23); Calcium 8.9 mg/dL (8.6-10.3); Carbon Dioxide 35 mEq/L (23-29); Chloride 98 mEq/L (98-107); Glucose 77 mg/dL (70-105); Osmolality,Calculated 297 (280-300); Potassium 3.7 mEq/L (3.5-5.1); Sodium 140 mEq/L (136-145); eGFR For African Americans > 60 (> 60); eGFR For Non-African Americans > 60 (> 60)
[2021-04-05] MEDS: *HR* Enoxaparin 40 MG/0.4 ML SYRINGE SQ SCH (06:07)
[2021-04-05] MEDS: *HR* OxyCODONE ER (12 HR) 10 MG TABLET PO SCH ×2 (06:07→17:46)
[2021-04-05] MEDS: MethylPREDNISolone 40 MG/ML VIAL IVP SCH ×2 (06:07→17:46)
[2021-04-05] MEDS: Pantoprazole 40 MG VIAL IVP SCH (08:01)
[2021-04-05] MEDS: Loratadine 10 MG TABLET PO SCH (08:02)
[2021-04-05] MEDS: Insulin DETEMIR 100 UNIT/ML X5UNITS SUBQ SCH ×2 (08:02→19:35)
[2021-04-05] MEDS ORDERED: Furosemide 40 MG/4 ML VIAL IVP ONE (09:20)
[2021-04-05] MEDS: Norepinephrine 4 MG/254 ML IV.SOLN IVC SCH (17:25)
[2021-04-05] MEDS: FLUoxetine 20 MG CAPSULE PO SCH (20:15)
[2021-04-06] MEDS: Morphine Sulfate 2 MG/ML SYRINGE IVP PRN ×3 (03:07→20:07)
[2021-04-06] MEDS: Insulin LISPRO 300 UNITS/3 ML VIAL SUBQ SCH ×6 (03:07→23:20)
[2021-04-06] MEDS: Piperacillin/Tazobactam 3.375 GM in 0.9 % Sodium Chloride Mini Bag 100 ML IVPB SCH ×3 (03:08→20:06)
[2021-04-06 03:26] LABS: VBG Ionized Calcium 1.18 mmol/L (1.15-1.35)
[2021-04-06 03:46] LABS: BUN/Creatinine Ratio 52 (6-26); Blood Urea Nitrogen 38 mg/dL (8-23); Calcium 8.6 mg/dL (8.6-10.3); Carbon Dioxide 36 mEq/L (23-29); Chloride 98 mEq/L (98-107); Glucose 72 mg/dL (70-105); Magnesium 1.9 mg/dL (1.6-2.6); Osmolality,Calculated 294 (280-300); Phosphorous 3.3 mg/dL (2.7-4.5); Potassium 4.1 mEq/L (3.5-5.1); Sodium 138 mEq/L (136-145); eGFR For African Americans > 60 (> 60); eGFR For Non-African Americans > 60 (> 60)
[2021-04-06 03:56] LABS: Eosinophils % 0.3 %; Hematocrit 33.5 % (35.3-44.9); Hemoglobin 10.6 g/dL (11.5-15.4); Immature Granulocytes % 0.7 % (0-4); Immature Platelets 22.6 % (1.1-6.1); Lymphocytes # 1.1 K/mcL (0.6-4.6); Lymphocytes % 15.5 %; Mean Corpuscular HGB Conc 31.6 g/dL (31.6-35.5); Mean Corpuscular Hemoglobin 30.3 pg (28.0-33.3); Mean Corpuscular Volume 95.7 fL (83.0-100.0); Monocytes # 0.7 K/mcL (0.0-1.3); Monocytes % 10.2 %; Neutrophils # 5.1 K/mcL (1.6-8.9); Platelet Count 104 K/mcL (140-400); Red Cell Distribution Width 16.1 % (11.5-14.5); Segmented Neutrophils % 73.3 %
[2021-04-06] MEDS: Ipratropium/Albuterol Neb 3 ML IH SCH ×6 (04:13→23:16)
[2021-04-06] MEDS: *HR* LORazepam 0.5 MG TABLET PO PRN ×3 (04:16→20:07)
[2021-04-06] MEDS: *HR* OxyCODONE ER (12 HR) 10 MG TABLET PO SCH ×2 (05:23→18:10)
[2021-04-06] MEDS: MethylPREDNISolone 40 MG/ML VIAL IVP SCH ×2 (05:23→18:09)
[2021-04-06] MEDS: *HR* Enoxaparin 40 MG/0.4 ML SYRINGE SQ SCH (05:23)
[2021-04-06] MEDS ORDERED: Furosemide 40 MG/4 ML VIAL IVP ONE (08:38)
[2021-04-06] MEDS: Loratadine 10 MG TABLET PO SCH (08:44)
[2021-04-06] MEDS: Insulin DETEMIR 100 UNIT/ML X5UNITS SUBQ SCH ×2 (08:45→20:08)
[2021-04-06] MEDS: Norepinephrine 4 MG/254 ML IV.SOLN IVC SCH (18:11)
[2021-04-06] MEDS: FLUoxetine 20 MG CAPSULE PO SCH (20:07)
[2021-04-06] MEDS: Dexmedetomidine HCl 400 MCG/100 ML MLS IVC SCH (23:16)
[2021-04-07] MEDS: Ipratropium/Albuterol Neb 3 ML IH SCH ×6 (03:17→23:24)
[2021-04-07] MEDS: Morphine Sulfate 2 MG/ML SYRINGE IVP PRN ×4 (03:35→14:44)
[2021-04-07] MEDS: *HR* LORazepam 0.5 MG TABLET PO PRN ×3 (03:35→15:47)
[2021-04-07] MEDS: Piperacillin/Tazobactam 3.375 GM in 0.9 % Sodium Chloride Mini Bag 100 ML IVPB SCH ×3 (03:36→19:44)
[2021-04-07] MEDS: Insulin LISPRO 300 UNITS/3 ML VIAL SUBQ SCH ×5 (03:39→19:50)
[2021-04-07 03:55] LABS: Basophils % 0.1 %; Eosinophils % 0.2 %; Mean Corpuscular Volume 95.7 fL (83.0-100.0)
[2021-04-07 03:57] LABS: Hematocrit 35.5 % (35.3-44.9); Hemoglobin 11.1 g/dL (11.5-15.4); Immature Granulocytes % 0.8 % (0-4); Immature Platelets 22.9 % (1.1-6.1); Lymphocytes % 10.3 %; Mean Corpuscular HGB Conc 31.3 g/dL (31.6-35.5); Mean Corpuscular Hemoglobin 29.9 pg (28.0-33.3); Mean Platelet Volume 14.2 fL (9.4-12.4); Monocytes # 0.7 K/mcL (0.0-1.3); Monocytes % 7.7 %; Neutrophils # 7.7 K/mcL (1.6-8.9); Platelet Count 128 K/mcL (140-400); Red Blood Count 3.71 M/mcL (3.82-4.97); Red Cell Distribution Width 16.9 % (11.5-14.5); Segmented Neutrophils % 80.9 %; White Blood Count 9.5 K/mcL (4.3-11.1)
[2021-04-07 04:09] LABS: BUN/Creatinine Ratio 49 (6-26); Blood Urea Nitrogen 37 mg/dL (8-23); Calcium 8.7 mg/dL (8.6-10.3); Carbon Dioxide 35 mEq/L (23-29); Chloride 95 mEq/L (98-107); Glucose 158 mg/dL (70-105); Magnesium 1.9 mg/dL (1.6-2.6); Osmolality,Calculated 298 (280-300); Phosphorous 3.7 mg/dL (2.7-4.5); Potassium 4.2 mEq/L (3.5-5.1); Sodium 138 mEq/L (136-145); eGFR For African Americans > 60 (> 60); eGFR For Non-African Americans > 60 (> 60)
[2021-04-07] MEDS: *HR* Enoxaparin 40 MG/0.4 ML SYRINGE SQ SCH (05:33)
[2021-04-07] MEDS: MethylPREDNISolone 40 MG/ML VIAL IVP SCH (05:33)
[2021-04-07] MEDS: *HR* OxyCODONE ER (12 HR) 10 MG TABLET PO SCH ×2 (05:34→17:41)
[2021-04-07] MEDS ORDERED: Furosemide 40 MG/4 ML VIAL IVP ONE (07:50)
[2021-04-07] MEDS: Loratadine 10 MG TABLET PO SCH (08:16)
[2021-04-07] MEDS: Insulin DETEMIR 100 UNIT/ML X5UNITS SUBQ SCH ×2 (08:16→19:47)
[2021-04-07] MEDS: Calcium Gluconate 1gm/50mL 1 GM/50 ML BAG IVPB PRN (08:33)
[2021-04-07] MEDS ORDERED: Dextrose Gel 15 GM/37.5 ML TUBE PO PRN ×2 (13:22)
[2021-04-07] MEDS ORDERED: Ondansetron 4 MG/2 ML VIAL IVP PRN (13:22)
[2021-04-07] MEDS ORDERED: *HR* Dextrose 50 % in Water (Vial) 50 ML VIAL IVP PRN (13:22)
[2021-04-07] MEDS ORDERED: Naloxone 0.4 MG/ML INJ IVP PRN (13:22)
[2021-04-07] MEDS ORDERED: D5% in Water 1,000 ML IVC PRN (13:22)
[2021-04-07] MEDS ORDERED: GuaiFENesin Liq 200 MG/10 ML UDC PO PRN (13:22)
[2021-04-07] MEDS ORDERED: Fluticasone Propionate Nasal 50 MCG/SPRAY BOTTLE NS PRN (13:22)
[2021-04-07] MEDS ORDERED: Mag Hydrox/Al Hydrox/Simeth 30 ML UDC PO PRN (13:22)
[2021-04-07] MEDS: Dexmedetomidine HCl 400 MCG/100 ML MLS IVC SCH (13:39)
[2021-04-07] MEDS ORDERED: MethylPREDNISolone 40 MG/ML VIAL IVP SCH (18:00)
[2021-04-07] MEDS: FLUoxetine 20 MG CAPSULE PO SCH (19:47)
[2021-04-08] MEDS: *HR* LORazepam 0.5 MG TABLET PO PRN ×4 (01:53→22:08)
[2021-04-08] MEDS: Morphine Sulfate 2 MG/ML SYRINGE IVP PRN ×4 (02:04→21:17)
[2021-04-08 02:34] LABS: VBG Ionized Calcium 1.13 mmol/L (1.15-1.35)
[2021-04-08 02:35] LABS: Hemoglobin 10.8 g/dL (11.5-15.4); Immature Granulocytes % 0.6 % (0-4); Red Cell Distribution Width 16.9 % (11.5-14.5)
[2021-04-08 02:37] LABS: Basophils % 0.1 %; Eosinophils # 0.1 K/mcL (0.0-0.6); Eosinophils % 0.6 %; Hematocrit 33.8 % (35.3-44.9); Immature Platelets 23.1 % (1.1-6.1); Lymphocytes # 0.9 K/mcL (0.6-4.6); Lymphocytes % 9.8 %; Mean Corpuscular Hemoglobin 30.5 pg (28.0-33.3); Mean Corpuscular Volume 95.5 fL (83.0-100.0); Monocytes # 0.7 K/mcL (0.0-1.3); Monocytes % 7.1 %; Platelet Count 131 K/mcL (140-400); Red Blood Count 3.54 M/mcL (3.82-4.97); Segmented Neutrophils % 81.8 %; White Blood Count 9.6 K/mcL (4.3-11.1)
[2021-04-08 02:41] LABS: Neutrophils # 7.9 K/mcL (1.6-8.9)
[2021-04-08 02:50] LABS: Alanine Aminotransferase 60 Units/L (7-52); Albumin 2.4 g/dL (3.5-5.7); Albumin/Globulin Ratio 0.8 (1.1-2.2); Alkaline Phosphatase 166 Units/L (34-104); Aspartate Amino Transferase 50 Units/L (13-39); BUN/Creatinine Ratio 46 (6-26); Bilirubin,Total 0.6 mg/dL (0.3-1.0); Blood Urea Nitrogen 34 mg/dL (8-23); Calcium 8.4 mg/dL (8.6-10.3); Carbon Dioxide 38 mEq/L (23-29); Chloride 92 mEq/L (98-107); Globulin 3.2 g/dL (2.4-3.5); Glucose 125 mg/dL (70-105); Magnesium 2.2 mg/dL (1.6-2.6); Osmolality,Calculated 289 (280-300); Phosphorous 2.9 mg/dL (2.7-4.5); Potassium 3.8 mEq/L (3.5-5.1); Sodium 135 mEq/L (136-145); Total Protein 5.6 g/dL (6.4-8.9); eGFR For African Americans > 60 (> 60); eGFR For Non-African Americans > 60 (> 60)
[2021-04-08] MEDS: Ipratropium/Albuterol Neb 3 ML IH SCH ×6 (03:58→23:40)
[2021-04-08] MEDS: *HR* OxyCODONE ER (12 HR) 10 MG TABLET PO SCH ×2 (05:34→16:25)
[2021-04-08] MEDS: *HR* Enoxaparin 40 MG/0.4 ML SYRINGE SQ SCH (06:10)
[2021-04-08] MEDS: Piperacillin/Tazobactam 3.375 GM in 0.9 % Sodium Chloride Mini Bag 100 ML IVPB SCH ×3 (06:10→21:18)
[2021-04-08] MEDS: Insulin LISPRO 300 UNITS/3 ML VIAL SUBQ SCH ×4 (07:34→21:11)
[2021-04-08] MEDS: Loratadine 10 MG TABLET PO SCH (08:25)
[2021-04-08] MEDS: predniSONE 20 MG TABLET PO SCH ×2 (08:25→21:16)
[2021-04-08] MEDS: Insulin DETEMIR 100 UNIT/ML X5UNITS SUBQ SCH ×2 (08:25→21:17)
[2021-04-08] MEDS ORDERED: Furosemide 20 MG/2 ML VIAL IVP SCH (09:00)
[2021-04-08] MEDS ORDERED: predniSONE 20 MG TABLET PO SCH (09:00)
[2021-04-08] MEDS: Dexmedetomidine HCl 400 MCG/100 ML MLS IVC SCH (09:57)
[2021-04-08] MEDS: *HR* HYDROcodone/Acet 5/325 mg TABLET PO PRN ×2 (14:14→22:08)
[2021-04-08] MEDS: Furosemide 20 MG/2 ML VIAL IVP SCH (16:25)
[2021-04-08] MEDS: FLUoxetine 20 MG CAPSULE PO SCH (21:17)
[2021-04-09 03:35] LABS: Mean Corpuscular Volume 95.6 fL (83.0-100.0); Red Cell Distribution Width 17.1 % (11.5-14.5)
[2021-04-09 03:37] LABS: Hematocrit 34.6 % (35.3-44.9); Immature Platelets 25.1 % (1.1-6.1); Mean Corpuscular HGB Conc 31.8 g/dL (31.6-35.5); Mean Corpuscular Hemoglobin 30.4 pg (28.0-33.3); Platelet Count 118 K/mcL (140-400); Red Blood Count 3.62 M/mcL (3.82-4.97); White Blood Count 8.2 K/mcL (4.3-11.1)
[2021-04-09 03:54] LABS: BUN/Creatinine Ratio 43 (6-26); Blood Urea Nitrogen 33 mg/dL (8-23); Calcium 8.8 mg/dL (8.6-10.3); Carbon Dioxide 39 mEq/L (23-29); Chloride 90 mEq/L (98-107); Glucose 237 mg/dL (70-105); Magnesium 2.1 mg/dL (1.6-2.6); Osmolality,Calculated 295 (280-300); Potassium 3.4 mEq/L (3.5-5.1); Sodium 135 mEq/L (136-145); eGFR For African Americans > 60 (> 60); eGFR For Non-African Americans > 60 (> 60)
[2021-04-09] MEDS: Ipratropium/Albuterol Neb 3 ML IH SCH ×6 (04:15→23:24)
[2021-04-09] MEDS: *HR* Enoxaparin 40 MG/0.4 ML SYRINGE SQ SCH (05:44)
[2021-04-09] MEDS: *HR* LORazepam 0.5 MG TABLET PO PRN ×4 (05:45→22:27)
[2021-04-09] MEDS: *HR* OxyCODONE ER (12 HR) 10 MG TABLET PO SCH ×2 (05:45→16:54)
[2021-04-09] MEDS: Dexmedetomidine HCl 400 MCG/100 ML MLS IVC SCH (05:46)
[2021-04-09] MEDS: Morphine Sulfate 2 MG/ML SYRINGE IVP PRN ×3 (06:55→20:54)
[2021-04-09] MEDS: Loratadine 10 MG TABLET PO SCH (08:25)
[2021-04-09] MEDS: predniSONE 20 MG TABLET PO SCH ×2 (08:25→19:53)
[2021-04-09] MEDS: Insulin LISPRO 300 UNITS/3 ML VIAL SUBQ SCH ×4 (08:26→19:57)
[2021-04-09] MEDS: Furosemide 20 MG/2 ML VIAL IVP SCH (08:26)
[2021-04-09] MEDS: Insulin DETEMIR 100 UNIT/ML X5UNITS SUBQ SCH ×2 (08:30→19:58)
[2021-04-09] MEDS: *HR* HYDROcodone/Acet 5/325 mg TABLET PO PRN ×2 (08:57→20:00)
[2021-04-09] MEDS: FLUoxetine 20 MG CAPSULE PO SCH (19:52)
[2021-04-10] MEDS: Ipratropium/Albuterol Neb 3 ML IH SCH ×6 (03:50→23:34)
[2021-04-10] MEDS: Dexmedetomidine HCl 400 MCG/100 ML MLS IVC SCH ×3 (05:28→21:14)
[2021-04-10] MEDS: Morphine Sulfate 2 MG/ML SYRINGE IVP PRN ×3 (05:29→17:45)
[2021-04-10] MEDS: *HR* LORazepam 0.5 MG TABLET PO PRN ×4 (05:29→23:26)
[2021-04-10] MEDS: *HR* OxyCODONE ER (12 HR) 10 MG TABLET PO SCH ×2 (05:29→16:02)
[2021-04-10] MEDS: *HR* Enoxaparin 40 MG/0.4 ML SYRINGE SQ SCH (05:41)
[2021-04-10 06:45] LABS: BUN/Creatinine Ratio 48 (6-26); Blood Urea Nitrogen 29 mg/dL (8-23); Calcium 9.2 mg/dL (8.6-10.3); Carbon Dioxide 35 mEq/L (23-29); Chloride 89 mEq/L (98-107); Glucose 143 mg/dL (70-105); Osmolality,Calculated 284 (280-300); Potassium 4.2 mEq/L (3.5-5.1); Sodium 133 mEq/L (136-145); eGFR For African Americans > 60 (> 60); eGFR For Non-African Americans > 60 (> 60)
[2021-04-10] MEDS: Insulin LISPRO 300 UNITS/3 ML VIAL SUBQ SCH ×4 (07:47→21:06)
[2021-04-10] MEDS: *HR* HYDROcodone/Acet 5/325 mg TABLET PO PRN (07:48)
[2021-04-10] MEDS: predniSONE 20 MG TABLET PO SCH ×2 (07:48→21:06)
[2021-04-10] MEDS: Loratadine 10 MG TABLET PO SCH (07:48)
[2021-04-10] MEDS: Insulin DETEMIR 100 UNIT/ML X5UNITS SUBQ SCH ×2 (07:49→21:07)
[2021-04-10] MEDS: Furosemide 20 MG/2 ML VIAL IVP SCH ×2 (11:51→15:59)
[2021-04-10 17:10] LABS: ABG Base Excess 7 mEq/L (-2 to 3); ABG HCO3 32 mEq/L (21-27); ABG Oxygen Saturation 82 % (95-98); ABG PCO2 48 mmHg (35-45); ABG PH 7.43 pH Units (7.32-7.45); ABG PO2 46 mmHg (85-104); ABG TCO2 34 mEq/L (20-26); Blood Gas Modality BiLevel
[2021-04-10] MEDS ORDERED: Artificial Tears SOLN 15 ML BOTTLE BOTH EYES PRN (17:27)
[2021-04-10] MEDS ORDERED: *HR* Metoprolol 5 MG/5 ML VIAL IVP ONE ×2 (17:51→17:52)
[2021-04-10] MEDS: Budesonide/Formoterol 160/4.5 1 PUFF INH IH SCH (19:26)
[2021-04-10] MEDS: Norepinephrine 4 MG/254 ML IV.SOLN IVC SCH (20:56)
[2021-04-10] MEDS: Phenylephrine 10 MG in 0.9 % Sodium Chloride 250 ML IVC SCH (20:56)
[2021-04-10] MEDS: FentaNYL (PF) 1,000 MCG/100 ML IV.SOLN IVC SCH (20:56)
[2021-04-10] MEDS: Artificial Tears SOLN 15 ML BOTTLE BOTH EYES SCH ×2 (20:57→23:26)
[2021-04-10] MEDS: Chlorhexidine Rinse 15 ML MOUTHWASH MM SCH (20:57)
[2021-04-10] MEDS: FLUoxetine 20 MG CAPSULE PO SCH (21:06)
[2021-04-11] MEDS: Dexmedetomidine HCl 400 MCG/100 ML MLS IVC SCH ×7 (01:10→23:50)
[2021-04-11] MEDS: Morphine Sulfate 2 MG/ML SYRINGE IVP PRN ×2 (01:21→20:30)
[2021-04-11] MEDS: Artificial Tears SOLN 15 ML BOTTLE BOTH EYES SCH ×6 (03:40→23:25)
[2021-04-11] MEDS: Ipratropium/Albuterol Neb 3 ML IH SCH ×6 (03:41→23:32)
[2021-04-11 03:55] LABS: Red Cell Distribution Width 17.1 % (11.5-14.5)
[2021-04-11 03:57] LABS: Hematocrit 35.2 % (35.3-44.9); Hemoglobin 11.1 g/dL (11.5-15.4); Mean Corpuscular HGB Conc 31.5 g/dL (31.6-35.5); Mean Corpuscular Hemoglobin 30.2 pg (28.0-33.3); Mean Corpuscular Volume 95.9 fL (83.0-100.0); Platelet Count 127 K/mcL (140-400); Red Blood Count 3.67 M/mcL (3.82-4.97); White Blood Count 7.6 K/mcL (4.3-11.1)
[2021-04-11 04:02] LABS: VBG HCO3 33 mEq/L (21-27); VBG PCO2 49 mmHg (41-51); VBG PH 7.43 pH Units (7.32-7.42); VBG PO2 95 mmHg (25-50)
[2021-04-11 04:27] LABS: BUN/Creatinine Ratio 48 (6-26); Blood Urea Nitrogen 29 mg/dL (8-23); Calcium 8.6 mg/dL (8.6-10.3); Carbon Dioxide 33 mEq/L (23-29); Chloride 88 mEq/L (98-107); Glucose 233 mg/dL (70-105); Osmolality,Calculated 279 (280-300); Potassium 4.3 mEq/L (3.5-5.1); Sodium 128 mEq/L (136-145); eGFR For African Americans > 60 (> 60); eGFR For Non-African Americans > 60 (> 60)
[2021-04-11] MEDS: *HR* LORazepam 0.5 MG TABLET PO PRN ×3 (04:35→20:16)
[2021-04-11 04:42] LABS: ABG Base Excess 6 mEq/L (-2 to 3); ABG HCO3 32 mEq/L (21-27); ABG Oxygen Saturation 93 % (95-98); ABG PCO2 48 mmHg (35-45); ABG PH 7.43 pH Units (7.32-7.45); ABG PO2 65 mmHg (85-104); ABG TCO2 33 mEq/L (20-26)
[2021-04-11] MEDS: *HR* Enoxaparin 40 MG/0.4 ML SYRINGE SQ SCH (05:52)
[2021-04-11] MEDS: *HR* OxyCODONE ER (12 HR) 10 MG TABLET PO SCH ×2 (05:53→17:58)
[2021-04-11] MEDS: Budesonide/Formoterol 160/4.5 1 PUFF INH IH SCH ×2 (08:25→19:43)
[2021-04-11] MEDS: predniSONE 20 MG TABLET PO SCH ×2 (09:17→20:16)
[2021-04-11] MEDS: Chlorhexidine Rinse 15 ML MOUTHWASH MM SCH ×2 (09:19→20:13)
[2021-04-11] MEDS: Furosemide 20 MG/2 ML VIAL IVP SCH ×2 (09:20→17:09)
[2021-04-11] MEDS: Pantoprazole 40 MG VIAL IVP SCH (09:20)
[2021-04-11] MEDS: Loratadine 10 MG TABLET PO SCH (09:20)
[2021-04-11] MEDS: Insulin LISPRO 300 UNITS/3 ML VIAL SUBQ SCH ×4 (09:20→20:14)
[2021-04-11] MEDS: Insulin DETEMIR 100 UNIT/ML X5UNITS SUBQ SCH ×2 (09:32→20:13)
[2021-04-11 13:59] LABS: Bilirubin,Urine Negative (Negative); Blood,Urine Large (Negative); Budding Yeast,Urine Moderate per hpf (None Seen); Clarity,Urine Clear (Clear); Color,Urine Light-Yellow (Yellow); Glucose,Urine (UA) Normal (Normal); Ketones,Urine Negative (Negative); Leukocyte Esterase,Urine Small (Negative); Nitrite,Urine Negative (Negative); Protein,Urine Negative (Neg-Trace); RBC,Urine TNTC per hpf (0-3); Specific Gravity,Urine 1.013 (1.010-1.025); Squamous Epithelial Cell,Urine Few per hpf (None-Few); Urobilinogen,Urine Normal (Normal); WBC,Urine 15-30 per hpf (0-3)
[2021-04-11] MEDS: FentaNYL (PF) 1,000 MCG/100 ML IV.SOLN IVC SCH (17:54)
[2021-04-11] MEDS: Phenylephrine 10 MG in 0.9 % Sodium Chloride 250 ML IVC SCH (17:55)
[2021-04-11] MEDS: Norepinephrine 4 MG/254 ML IV.SOLN IVC SCH (17:55)
[2021-04-11] MEDS: FLUoxetine 20 MG CAPSULE PO SCH (20:16)
[2021-04-11] MEDS: *HR* HYDROcodone/Acet 5/325 mg TABLET PO PRN (22:20)
[2021-04-12] MEDS: Artificial Tears SOLN 15 ML BOTTLE BOTH EYES SCH ×6 (03:13→23:35)
[2021-04-12] MEDS: Dexmedetomidine HCl 400 MCG/100 ML MLS IVC SCH ×7 (03:13→23:20)
[2021-04-12] MEDS: Ipratropium/Albuterol Neb 3 ML IH SCH ×5 (03:26→20:28)
[2021-04-12] MEDS: *HR* LORazepam 0.5 MG TABLET PO PRN ×3 (03:51→19:40)
[2021-04-12] MEDS: Morphine Sulfate 2 MG/ML SYRINGE IVP PRN ×3 (03:51→14:17)
[2021-04-12] MEDS: *HR* HYDROcodone/Acet 5/325 mg TABLET PO PRN ×2 (03:51→19:40)
[2021-04-12 04:49] LABS: Immature Granulocytes % 0.8 % (0-4); Mean Corpuscular Volume 94.2 fL (83.0-100.0)
[2021-04-12 04:50] LABS: Hematocrit 35.9 % (35.3-44.9); Hemoglobin 11.4 g/dL (11.5-15.4); Immature Platelets 24.6 % (1.1-6.1); Lymphocytes # 0.5 K/mcL (0.6-4.6); Lymphocytes % 6.4 %; Mean Corpuscular HGB Conc 31.8 g/dL (31.6-35.5); Mean Corpuscular Hemoglobin 29.9 pg (28.0-33.3); Monocytes # 0.5 K/mcL (0.0-1.3); Monocytes % 6.1 %; Neutrophils # 6.5 K/mcL (1.6-8.9); Platelet Count 134 K/mcL (140-400); Red Blood Count 3.81 M/mcL (3.82-4.97); Red Cell Distribution Width 17.2 % (11.5-14.5); Segmented Neutrophils % 86.7 %; White Blood Count 7.5 K/mcL (4.3-11.1)
[2021-04-12 04:59] LABS: BUN/Creatinine Ratio 49 (6-26); Blood Urea Nitrogen 30 mg/dL (8-23); Calcium 8.7 mg/dL (8.6-10.3); Carbon Dioxide 36 mEq/L (23-29); Chloride 87 mEq/L (98-107); Glucose 132 mg/dL (70-105); Osmolality,Calculated 276 (280-300); Sodium 129 mEq/L (136-145); eGFR For African Americans > 60 (> 60); eGFR For Non-African Americans > 60 (> 60)
[2021-04-12] MEDS: *HR* Enoxaparin 40 MG/0.4 ML SYRINGE SQ SCH (05:42)
[2021-04-12] MEDS: *HR* OxyCODONE ER (12 HR) 10 MG TABLET PO SCH ×3 (05:43→18:27)
[2021-04-12] MEDS: Budesonide/Formoterol 160/4.5 1 PUFF INH IH SCH ×2 (07:25→20:28)
[2021-04-12] MEDS: Pantoprazole 40 MG VIAL IVP SCH (08:12)
[2021-04-12] MEDS: Insulin LISPRO 300 UNITS/3 ML VIAL SUBQ SCH ×4 (08:13→19:41)
[2021-04-12] MEDS: predniSONE 20 MG TABLET PO SCH ×2 (08:14→19:40)
[2021-04-12] MEDS: Loratadine 10 MG TABLET PO SCH (08:14)
[2021-04-12] MEDS: Insulin DETEMIR 100 UNIT/ML X5UNITS SUBQ SCH ×2 (09:37→21:44)
[2021-04-12] MEDS: Chlorhexidine Rinse 15 ML MOUTHWASH MM SCH ×2 (09:38→19:40)
[2021-04-12 11:34] LABS: BUN/Creatinine Ratio 47 (6-26); Blood Urea Nitrogen 27 mg/dL (8-23); Calcium 8.6 mg/dL (8.6-10.3); Carbon Dioxide 36 mEq/L (23-29); Chloride 89 mEq/L (98-107); Glucose 100 mg/dL (70-105); Osmolality,Calculated 275 (280-300); Potassium 3.7 mEq/L (3.5-5.1); Sodium 130 mEq/L (136-145); eGFR For African Americans > 60 (> 60); eGFR For Non-African Americans > 60 (> 60)
[2021-04-12] MEDS: Phenylephrine 10 MG in 0.9 % Sodium Chloride 250 ML IVC SCH (16:19)
[2021-04-12] MEDS: FentaNYL (PF) 1,000 MCG/100 ML IV.SOLN IVC SCH (16:19)
[2021-04-12] MEDS: Norepinephrine 4 MG/254 ML IV.SOLN IVC SCH (16:19)
[2021-04-12] MEDS: FLUoxetine 20 MG CAPSULE PO SCH (19:40)
[2021-04-13] MEDS: Dexmedetomidine HCl 400 MCG/100 ML MLS IVC SCH ×6 (02:23→17:26)
[2021-04-13] MEDS: Morphine Sulfate 2 MG/ML SYRINGE IVP PRN ×3 (02:48→14:33)
[2021-04-13] MEDS: *HR* HYDROcodone/Acet 5/325 mg TABLET PO PRN ×2 (03:11→08:30)
[2021-04-13] MEDS: *HR* LORazepam 0.5 MG TABLET PO PRN ×2 (03:12→08:30)
[2021-04-13] MEDS: Artificial Tears SOLN 15 ML BOTTLE BOTH EYES SCH ×4 (03:16→15:43)
[2021-04-13 03:55] LABS: Basophils % 0.1 %; Eosinophils # 0.1 K/mcL (0.0-0.6); Eosinophils % 1.1 %; Hematocrit 36.1 % (35.3-44.9); Hemoglobin 11.7 g/dL (11.5-15.4); Immature Platelets 25.3 % (1.1-6.1); Lymphocytes # 0.7 K/mcL (0.6-4.6); Lymphocytes % 6.3 %; Mean Corpuscular HGB Conc 32.4 g/dL (31.6-35.5); Mean Corpuscular Hemoglobin 30.6 pg (28.0-33.3); Mean Corpuscular Volume 94.5 fL (83.0-100.0); Mean Platelet Volume 14.1 fL (9.4-12.4); Monocytes # 0.9 K/mcL (0.0-1.3); Monocytes % 8.4 %; Neutrophils # 9.2 K/mcL (1.6-8.9); Platelet Count 148 K/mcL (140-400); Red Blood Count 3.82 M/mcL (3.82-4.97); Segmented Neutrophils % 83.1 %
[2021-04-13] MEDS: Ipratropium/Albuterol Neb 3 ML IH SCH ×6 (04:02→19:45)
[2021-04-13 04:05] LABS: BUN/Creatinine Ratio 43 (6-26); Blood Urea Nitrogen 24 mg/dL (8-23); Calcium 8.6 mg/dL (8.6-10.3); Carbon Dioxide 33 mEq/L (23-29); Chloride 89 mEq/L (98-107); Glucose 108 mg/dL (70-105); Osmolality,Calculated 271 (280-300); Sodium 128 mEq/L (136-145); eGFR For African Americans > 60 (> 60); eGFR For Non-African Americans > 60 (> 60)
[2021-04-13] MEDS: Insulin LISPRO 300 UNITS/3 ML VIAL SUBQ SCH ×3 (04:33→17:26)
[2021-04-13] MEDS: *HR* Enoxaparin 40 MG/0.4 ML SYRINGE SQ SCH (05:35)
[2021-04-13] MEDS: *HR* OxyCODONE ER (12 HR) 10 MG TABLET PO SCH ×2 (05:35→17:27)
[2021-04-13] MEDS: Budesonide/Formoterol 160/4.5 1 PUFF INH IH SCH ×2 (08:21→19:45)
[2021-04-13] MEDS: Chlorhexidine Rinse 15 ML MOUTHWASH MM SCH (08:29)
[2021-04-13] MEDS: predniSONE 20 MG TABLET PO SCH (08:30)
[2021-04-13] MEDS: Loratadine 10 MG TABLET PO SCH (08:30)
[2021-04-13] MEDS: Pantoprazole 40 MG VIAL IVP SCH (08:31)
[2021-04-13] MEDS: Insulin DETEMIR 100 UNIT/ML X5UNITS SUBQ SCH (08:42)
[2021-04-13] MEDS: Norepinephrine 4 MG/254 ML IV.SOLN IVC SCH ×2 (15:44→20:05)
[2021-04-13] MEDS ORDERED: Artificial Tears SOLN 15 ML BOTTLE BOTH EYES PRN (19:17)
[2021-04-13] MEDS ORDERED: FentaNYL (PF) 1,000 MCG/100 ML IV.SOLN IVC SCH ×2 (19:30→19:45)
[2021-04-13 19:50] VITALS: BP 80/49
[2021-04-13] MEDS ORDERED: Artificial Tears SOLN 15 ML BOTTLE BOTH EYES SCH (20:00)
[2021-04-13 20:04] LABS: ABG Base Excess 6 mEq/L (-2 to 3); ABG HCO3 33 mEq/L (21-27); ABG Oxygen Saturation 95 % (95-98); ABG PCO2 52 mmHg (35-45); ABG PO2 76 mmHg (85-104); ABG TCO2 34 mEq/L (20-26); Blood Gas Modality ASSIST CONTROL; Blood Gas VT 500 cc
[2021-04-13] MEDS ORDERED: *HR* Succinylcholine 200 MG/10 ML VIAL IVP ONE (20:31)
[2021-04-13] MEDS ORDERED: *HR* Propofol 200 MG/20 ML VIAL IVP ONE (20:31)
[2021-04-13] MEDS ORDERED: Chlorhexidine Rinse 15 ML MOUTHWASH MM SCH (21:00)
== END 2021-04-13 20:32 | disposition short-term general hospital (02) | DRG 720 ==
LOC: EMEROOARM 11:13 → SUATTDRO 14:21 → ICNU 14:21 → 2NNU 04-07 12:17 → ICNU 04-10 17:41
PROVIDERS: ADMIT Internal Medicine; ATTEND Internal Medicine